=== PATIENT | male | born 1945 | race Caucasian/White ===

== ENCOUNTER 2018-03-13 08:41 | Emergency (ER) | payer MEDICARE ==
[~2018-03-13] VITALS: Ht 182.9 cm; Wt 79.4 kg
[~2018-03-13 08:41] MED LIST: ASPIR 8181 MG PO; LISINOPRIL40 MG PO; LOVASTATIN20 MG PO; RANITIDINE HCL300 M1 PO; TESTOSTERO200 MG/1 M INJ
[2018-03-13 09:30] LABS: BASOPHILS % 0.5 % (0.0-1.0); EOSINOPHILS # (AUTO) 0.1 (0.0-0.4); EOSINOPHILS % 1.8 % (0.0-6.0); HEMATOCRIT 47.2 % (38.2-49.6); HEMOGLOBIN 15.4 g/dL (14.0-18.0); LYMPHOCYTES # (AUTO) 0.7 (1.0-3.2); LYMPHOCYTES % 8.2 % (18.0-39.1); MEAN CORPUSCULAR HEMOGLOBIN 30.5 pg (28-32); MEAN CORPUSCULAR HGB CONC 32.6 g/dL (31-35); MEAN CORPUSCULAR VOLUME 93.5 fL (81-99); MONOCYTES # (AUTO) 0.6 (0.2-0.8); NEUTROPHILS # (AUTO) 6.4 (2.1-6.9); NEUTROPHILS % 81.4 % (38.7-80.0); PLATELET COUNT 259 x10e3/uL (140-360); RED BLOOD COUNT 5.05 x10e6/uL (4.3-5.7); RED CELL DISTRIBUTION WIDTH 13.2 % (11.7-14.4)
[2018-03-13 09:51] LABS: ALANINE AMINOTRANSFERASE 23 IU/L (0-55); ALBUMIN 3.8 g/dL (3.5-5.0); ALBUMIN/GLOBULIN RATIO 1.5 (0.8-2.0); ALKALINE PHOSPHATASE 44 IU/L (40-150); ANION GAP 11.5 mmol/L (8-16); BLOOD UREA NITROGEN 28 mg/dL (7-26); BUN/CREATININE RATIO 25 (6-25); CALCIUM 9.1 mg/dL (8.4-10.2); CARBON DIOXIDE 27 mmol/L (22-29); CHLORIDE 103 mmol/L (98-107); CREATININE, SERUM 1.12 mg/dL (0.72-1.25); EST GLOMERULAR FILTRATION RATE > 60 ML/MIN (60-); GLUCOSE 131 mg/dL (74-118); POTASSIUM 4.5 mmol/L (3.5-5.1); SODIUM 137 mmol/L (136-145)
[2018-03-13 09:53] LABS: INR 1.08; PROTHROMBIN TIME 13.2 seconds (11.9-14.5)
[2018-03-13 09:54] LABS: PARTIAL THROMBOPLASTIN TIME 32.8 seconds (23.8-35.5)
[2018-03-13 10:07] LABS: CREATINE KINASE MB 6.6 ng/mL (0-5.0)
--- NOTE | 2018-03-13 10:48 | Diagnostic Imaging Report ---
EXAMINATION: CHEST 2 VIEWS INDICATION: coughed up blood COMPARISON: 06/25/2015. FINDINGS: TUBES and LINES: None. LUNGS: Lungs are well inflated. Costophrenic gentleman the left lung base laterally. There is no evidence of pneumonia or pulmonary edema. PLEURA: No pleural effusion or pneumothorax. HEART AND MEDIASTINUM: The cardiomediastinal silhouette is unremarkable. BONES AND SOFT TISSUES: No acute osseous lesion. Soft tissues are unremarkable. UPPER ABDOMEN: No free air under the diaphragm. IMPRESSION: No acute thoracic abnormality. Signed by: Dr. Linda Salas M.D. on 03/13/2018 9:43 AM
[2018-03-13] MEDS ORDERED: SODIUM CHLORIDE 0.9% 50ML 50 ML ONE (11:40)
[2018-03-13] MEDS ORDERED: IOPAMIDOL 370 MG/ML 200 ML INFUS..BTL INJ ONE (11:41)
--- NOTE | 2018-03-13 12:01 | Diagnostic Imaging Report ---
EXAM: CT Chest WITH contrast 03/13/2018 10:48 AM INDICATION: Coughing up blood. COMPARISON: None TECHNIQUE: Chest was scanned utilizing a multidetector helical scanner from the lung apex through the level of the adrenal glands without administration of IV contrast. Coronal and sagittal reformations were obtained. Routine protocol was performed. IV CONTRAST: 100 mL of Isovue 370 RADIATION DOSE: Total DLP: 502.97 mGy*cm Estimated effective dose: (DLP x 0.014 x size factor) mSv COMPLICATIONS: None FINDINGS: LINES/ TUBES: None. LUNGS AND AIRWAYS: Punctate calcified granuloma in the right middle lobe mucous plugging in the right lower lobe posteriorly, associated with fracture groundglass densities as seen on 2 series 3. Calcified granuloma in the posterior left lung base on images 61 series 3. Mild bibasilar subsegmental atelectasis. PLEURA: The pleural spaces are clear. HEART AND MEDIASTINUM: The thyroid gland is normal. No mediastinal, hilar or axillary lymphadenopathy. The heart is normal in size.. There is no pericardial effusion. UPPER ABDOMEN: Limited non-contrast views of the upper abdomen show no abnormality within the visualized liver, spleen, pancreas, or kidneys. The adrenal glands are normal. BONES: There are degenerative changes in the thoracic spine. SOFT TISSUES: Unremarkable. IMPRESSION: 1. Mucous plugging and patchy groundglass density in the posterior left lower lobe may represent aspiration, developing pneumonia, or focal pulmonary alveolar hemorrhage. 2. No pulmonary embolism. Signed by: Dr. Linda Salas M.D. on 03/13/2018 11:58 AM
== END 2018-03-13 13:49 | disposition home or self-care (01) ==
LOC: ER 08:41
DX: R04.2 Hemoptysis (principal); I10 Essential (primary) hypertension; K21.9 Gastro-esophageal reflux disease without esophagitis; E78.5 Hyperlipidemia, unspecified
CPT/HCPCS: 36415; 71046; 71260; 80053; 82550; 82553; 83880; 84484; 85025; 85379; 85610; 85730; 99284; Q9967

== ENCOUNTER 2019-03-13 05:20 | Inpatient (IN) | payer MEDICARE ==
--- NOTE | 2019-03-06 13:01 | Diagnostic Imaging Report ---
Chest, 2 views, 03/06/2019. History: Preop. Comparison: 03/13/2018. Findings: The cardiomediastinal silhouette and pulmonary vasculature are within normal limits. The lungs are clear without evidence of consolidation or pleural effusion. A calcified granuloma is again seen at the left lung base. There are no acute osseous or soft tissue abnormalities. Impression: No acute cardiopulmonary abnormality. Signed by: Melvin Valdovinos on 03/06/2019 12:58 PM
[~2019-03-13] VITALS: Ht 182.9 cm; Wt 77.1 kg
[~2019-03-13 05:20] MED LIST changes: +FLOMAX0.4 MG PO; +PANTOPRAZOLE SO40 MG PO
--- OUTSIDE RECORDS SUMMARY | 2019-03-13 05:22 | XMS REPORT ---
Author Author [facility] Address Unknown Phone Unavailable Care Team Providers Care Electromechanical Inspector Name Role Phone LEO RAM Unavailable Unavailable Pepe LUO Unavailable Unavailable Problems This patient has no known problems. Allergies, Adverse Reactions, Alerts This patient has no known allergies or adverse reactions. Medications This patient has no known medications. Results Test Description Test Time Test Comments Text Results Atomic Results Result Comments CHEST 2 VIEWS 2019-03-06 12:55:00 [facility] [address] [place] [address] Patient Name: ANGELA RINALDI MR #: [id number] : 1945 Age/Sex: 74/M Req #: [id number] Adm Physician: Ordered by: LEO RAM MD Report #: [id number] Location: OR Room/Bed: Procedure: [id number] DX/CHEST 2 VIEWS Exam Date: 03/06/19 Exam Time: 1200 REPORT STATUS: Signed Chest, 2 views, 03/06/2019. History: Preop. C omparison: 03/13/2018. Findings: The cardiomediastinal silhouette and pulmonary vasculature are within normal limits. The lungs are clear without evidence of consolidation or pleural effusion. A calcified granuloma is again seen at the left lung base. There are no acute osseous or soft tissue abnormalities. Impression: No acute cardiopulmonary abnormality. Signed by: Mandeep Valdovinos on 03/06/2019 12:58 PM Dictated By: MANDEEP VALDOVINOS MD [id number] Transcribed By: DAVID on 03/06/19 1258 COPY TO: LEO RAM MD CT CHEST W 2018-03-13 11:49:00 [place] [address] Patient Name: ANGELA RINALDI MR #: [id number] : 1945 Age/Sex: 73/M Req #: [id number] Adm Physician: Ordered by: CLARISSE LUO MD Report #: [id number] Location: ER Room/Bed: Procedure: [id number] CT/CT CHEST W Exam Date: 03/13/18 Exam Time: 1124 REPORT STATUS: Signed EXAM: CT Chest WITH contrast 03/13/2018 10:48 AM INDICATION: Coughing up blood. COMPARISON: None TECHNIQUE: Chest was scanned utilizing a multidetector helical scanner from the lung apex through the level of the adrenal glands without administration of IV contrast. Coronal and sagittal reformations were obtained. Routine protocol was performed. IV CONTRAST: 100 mL of Isovue 370 RADIATION DOSE: Total DLP: 502.97 mGy*cm Estimated effective dose: (DLP x 0.014 x size factor) mSv COMPLICATIONS: None FINDINGS: LINES/ TUBES: None. LUNGS AND AIRWAYS: Punctate calcified granuloma in the right middle lobe mucous plugging in the right lower lobe posteriorly, associated with fracture groundglass densities as seen on 2 series 3. Calcified granuloma in the poste rior left lung base on images 61 series 3. Mild bibasilar subsegmental atelectasis. PLEURA: The pleural spaces are clear. HEART AND MEDIASTINUM: The thyroid gland is normal. No mediastinal, hilar or axillary lymphadenopathy. The heart is normal in size.. There is no pericardial effusion. UPPER ABDOMEN: Limited non-contrast views of the upper abdomen show no abnormality within the visualized liver, spleen, pancreas, or kidneys. The adrenal glands are normal. BONES: There are degenerative changes in the thoracic spine. SOFT TISSUES: Unremarkable. IMPRESSION: 1. Mucous plugging and patchy groundglass density in the posterior left lower lobe may represent aspiration, developing pneumonia, or focal pulmonary alveolar hemorrhage. 2. No pulmonary embolism. Signed by: Dr. Linda Keyes M.D. on 03/13/2018 11:58 AM Dictated By: BUCK KEYES MD, MD 115 Transcribed By: DAVID on 03/13/181157 COPY TO: CLARISSE LUO MD CHEST 2 VIEWS 2018-03-13 09:39:00 [place] [address] Patient Name: ANGELA RINALDI MR #: [id number] : 1945 Age/Sex: 73/M Req #: [id number] Adm Physician: Ordered by: CLARISSE LUO MD Report #: [id number] Location: ER Room/Bed: Procedure: [id number] DX/CHEST 2 VIEWS Exam Date: 03/13/18 Exam Time: 923 REPORT STATUS: Signed EXAMINATION: CHEST 2 VIEWS INDICATION: coughed up blood COMPARISON: 06/25/2015. FINDINGS: TUBES and LINES: None. LUNGS: Lungs are well inflated. Costophrenic gentleman the left lung base laterally. There is no evidence of pneumonia or pulmonary edema. PLEURA: No pleural effusion or pneumothorax. HEART AND MEDIASTINUM: The cardiomediastinal silhouette is unremarkable. BONES AND SOFT TISSUES: No acute osseous lesion. Soft tissues are unremarkable. UPPER ABDOMEN: No free air under the diaphragm. IMPRESSION: No acute thoracic abnormality. Signed by: Dr. Linda Keyes M.D. on 03/13/2018 9:43 AM Dictated By: BUCK KEYES MD, MD 2 Transcribed By: DAVID on 03/13/18942 COPY TO: CLARISSE LUO MD
[2019-03-13] MEDS ORDERED: GENTAMICIN 80MG/NS 100 ML 200 ML IV ONE (05:42)
[2019-03-13] MEDS ORDERED: CEFTRIAXONE SOD 1 GM/NS 50 ML 50 ML IV ONE (05:42)
[2019-03-13] MEDS ORDERED: B&O 60MG R/S 60 MG SUPP PR ONE (06:44)
[2019-03-13] MEDS ORDERED: IOPAMIDOL 610MG/1ML 300 MG/ML VIAL IV ONE (06:44)
[2019-03-13] MEDS ORDERED: B&O 60MG R/S 60 MG SUPP PR PRN (09:15)
[2019-03-13] MEDS ORDERED: DIPHENHYDRAMINE HCL 25 MG CAP PO PRN (09:15)
[2019-03-13] MEDS ORDERED: ACETAMINOPHEN/CODEINE 300MG - 30MG TAB PO PRN (09:15)
[2019-03-13] MEDS ORDERED: ONDANSETRON HCL INJ 2MG/ML 2ML 2 MG/ML VIAL IV PRN (09:15)
[2019-03-13] MEDS ORDERED: ACETAMINOPHEN 1000 MG/100 ML 100 ML IV ONE (09:23)
--- NOTE | 2019-03-13 09:36 | NUR ---
Patient admitted to unit from PACU. Patient is post op TURP. patient has a alvarenga with continuous bladder irrigation infusing. Clear urine noted. Patient is AAOx2-3. Some confusion or delayed response noted. Lung nieves clear to auscultation. Bowel sounds present x4. No edema noted. Right hand IV in place. IV fluids infusing. No s/s of distress noted
[2019-03-13 10:47] VITALS: BP 131/59
[2019-03-13 10:52] VITALS: BP 131/59
[2019-03-13 11:17] LABS: BASOPHILS % 0.4 % (0.0-1.0); EOSINOPHILS % 0.2 % (0.0-6.0); HEMATOCRIT 41.8 % (38.2-49.6); HEMOGLOBIN 13.8 g/dL (14.0-18.0); LYMPHOCYTES # (AUTO) 0.5 (1.0-3.2); LYMPHOCYTES % 4.3 % (18.0-39.1); MEAN CORPUSCULAR HEMOGLOBIN 30.1 pg (28-32); MEAN CORPUSCULAR VOLUME 91.3 fL (81-99); MONOCYTES # (AUTO) 0.2 (0.2-0.8); MONOCYTES % 1.6 % (4.4-11.3); NEUTROPHILS # (AUTO) 10.3 (2.1-6.9); NEUTROPHILS % 92.2 % (38.7-80.0); PLATELET COUNT 206 x10e3/uL (140-360); RED BLOOD COUNT 4.58 x10e6/uL (4.3-5.7)
[2019-03-13 11:32] LABS: ANION GAP 9.7 mmol/L (8-16); BLOOD UREA NITROGEN 15 mg/dL (7-26); BUN/CREATININE RATIO 15 (6-25); CALCIUM 8.3 mg/dL (8.4-10.2); CARBON DIOXIDE 25 mmol/L (22-29); CHLORIDE 106 mmol/L (98-107); CREATININE, SERUM 0.97 mg/dL (0.72-1.25); EST GLOMERULAR FILTRATION RATE > 60 ML/MIN (60-); GLUCOSE 178 mg/dL (74-118); POTASSIUM 4.7 mmol/L (3.5-5.1); SODIUM 136 mmol/L (136-145)
[2019-03-13 12:00] VITALS: BP 131/57
[2019-03-13] MEDS: SODIUM CHLORIDE 0.9% 1000ML 1,000 ML IV SCH ×3 (12:14→23:58)
--- NOTE | 2019-03-13 12:15 | NUR ---
IV in right hand noted to be hanging out. Removed IV and will start a new one
--- NOTE | 2019-03-13 12:30 | NUR ---
Call placed to Dr. Pickens regarding patient's delay in response when asked a question. New order for MRI brain.
--- NOTE | 2019-03-13 13:02 | NUR ---
Informed patient of this nurses concern about his delayed response and patient informed he has a pinched nerve in his neck. Spoke with MD and informed him of the issue. Dr hopkins still wishes to have the MRI done
[2019-03-13 13:08] LABS: LYMPHOCYTES % (MANUAL) 7 % (19-48); MONOCYTES % (MANUAL) 3 % (3.4-9.0); NEUTROPHILS % (MANUAL) 90 % (40-74); PLATELET ESTIMATE ADEQUATE; RBC MORPHOLOGY COMMENT NORMAL
--- NOTE | 2019-03-13 13:48 | NUR ---
New IV to the left AC area.
[2019-03-13] MEDS ORDERED: PHENAZOPYRIDINE HCL 100 MG TAB PO SCH (15:00)
--- NOTE | 2019-03-13 15:08 | NUR ---
Patient going to MRI at this time in a wheelchair. Rodriguez clamped from irrigation.
--- NOTE | 2019-03-13 15:53 | NUR ---
Patient returned from MRI at this time.
[2019-03-13 16:00] VITALS: BP 140/65
[2019-03-13] MEDS ORDERED: PROPOFOL IV EMULSION 10 MG/ML 20 ML VIAL ONE (16:37)
[2019-03-13] MEDS ORDERED: DEXAMETHASONE SOD PHOS INJ 4 MG/ML VIAL ONE (16:37)
[2019-03-13] MEDS ORDERED: SEVOFLURANE INHAL SOLN 250 ML PEN BTL ONE (16:37)
[2019-03-13] MEDS ORDERED: ONDANSETRON HCL INJ 2MG/ML 2ML 2 MG/ML VIAL ONE (16:37)
[2019-03-13] MEDS ORDERED: EPHEDRINE SULFATE INJ 50 MG/10 ML SYR ONE (16:37)
[2019-03-13] MEDS ORDERED: GLYCOPYRROLATE INJ 1MG/ 5 ML SYR ONE (16:37)
[2019-03-13] MEDS ORDERED: LIDOCAINE HCL 2% LOCAL INJ 5 ML SDV VIAL INJ ONE (16:37)
[2019-03-13] MEDS ORDERED: FENTANYL CITRATE/PF 100MCG/2 ML INJ ONE (16:40)
[2019-03-13] MEDS: DOCUSATE SODIUM 100 MG CAP PO SCH (17:20)
[2019-03-13] MEDS: PHENAZOPYRIDINE HCL 100 MG TAB PO SCH (17:20)
--- NOTE | 2019-03-13 18:02 | NUR ---
Rcvd call from radiologist at [facility] and was informed that this patient had a right fernanda acute infarct. Addendum: 03/13/19 at 1817 by Kirsten Millard RN Radiologist recommended a CTA of head and neck and neuro consult.
--- NOTE | 2019-03-13 18:05 | NUR ---
Call placed to Dr. Pickens to inform of the findings from the MRI. New order for consult russel. New order noted and informed Dr. Causey of the issue at hand. She informed she would be here in a little bit to see the patient.
--- NOTE | 2019-03-13 18:08 | Diagnostic Imaging Report ---
Images made available for interpretation on 03/13/2019 at 5:55 PM. EXAMINATION: MRI of the brain without contrast. HISTORY: Status post recent surgery, delayed response, not answering questions, evaluate for acute stroke. COMPARISON: None available TECHNIQUE: Sagittal T2; axial DWI, T2, FLAIR, T1-IR, T2 gradient echo; coronal FLAIR. IMAGE QUALITY: Adequate. FINDINGS: Parenchyma: 1. Focal area of matching T2 FLAIR and DWI hyperintensity in the right para median fernanda, consistent with acute ischemic infarct. 2. Few scattered white matter T2 and FLAIR hyperintense foci, most likely nonspecific chronic microvascular ischemic changes. 3. Tiny chronic lacunar infarct in the right thalamocapsular region. 4. No mass, hemorrhage, acute or chronic infarcts. Skull: Unremarkable. Vessels: Expected flow voids present in the major arteries and dural sinuses. Extra-axial spaces: No abnormal signal intensity or mass effect. Brain volume: Within normal limits for age. Ventricles: No hydrocephalus or displacement. Foramen magnum: Unremarkable. Sella: Unremarkable. Paranasal / mastoid sinuses: No significant inflammatory disease. IMPRESSION: 1. 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 An emergent neurology consult and CT angiogram of the head and neck with contrast is recommended. 2. Mild chronic microvascular ischemic changes. The findings were discussed with nurse practitioner taking care of the patient, Cecilia Millard on 03/13/2019 at 6 PM, who expresses understanding of the findings and recommendations and will contact the attending physician. Signed by: Dr. Ayleen Cantu M.D. on 03/13/2019 6:05 PM
--- NOTE | 2019-03-13 18:22 | NUR ---
Call placed to Dr. Concepcion and informed him of the MRI results as well.
--- NOTE | 2019-03-13 19:00 | NUR ---
Walking rounds done and report received. Dr. Causey at the bedside assessing patient. CBI infusing. Call ortega within reach, bed in lowest position, and locked.
[2019-03-13] MEDS ORDERED: DEXTROSE 50% SYRINGE 50 ML IV PRN (19:15)
[2019-03-13 19:40] LABS: CHOL/HDL RATIO 2.8 (3.9-4.7)
[2019-03-13 20:00] VITALS: BP_SYST 140; BP_SYST 154; BP_DIAS 65; BP_DIAS 67
[2019-03-13] MEDS ORDERED: NON-FORMULARY MEDICATION (Lovastatin 20 MG) PO SCH (21:00)
[2019-03-13] MEDS: INSULIN REGULAR, HUMAN 100 UNIT/1 ML 3ML VIAL SQ SCH (21:00)
[2019-03-13] MEDS ORDERED: SIMVASTATIN 20 MG TAB PO SCH (21:00)
[2019-03-13] MEDS ORDERED: IOPAMIDOL 370 MG/ML 200 ML INFUS..BTL INJ ONE (22:13)
[2019-03-13] MEDS ORDERED: SODIUM CHLORIDE 0.9% 100 ML 100 ML ONE (22:13)
[2019-03-14] VITALS (8 sets, daily range): BP systolic 146–177; BP diastolic 63–80
--- NOTE | 2019-03-14 00:35 | Diagnostic Imaging Report ---
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 Comparison studies:None Technique: Axial images were obtained from the thoracic inlet. Multiplanar, MIP and volume rendered 3-D images of the neck and [place] of [place] were reformatted from the axial source data. Dose modulation, iterative reconstruction, and/or weight based adjustment of the mA/kV was utilized to reduce the radiation dose to as low as reasonably achievable. Intravenous contrast: 100 cc of Isovue-370. Findings: Neck CTA: If present, stenosis is calculated utilizing the NASCET method which calculates the degree of stenosis with reference to the normal lumen of the carotid artery distal to the stenosis. Aortic arch and great vessels: Mild scattered calcified plaque throughout the aortic arch. Calcified and soft plaque in the proximal left subclavian result in approximately 20% stenosis. Common carotid arteries: Patent, no abnormalities. Carotid bulbs: Moderate calcified plaque bilaterally result in no (0%) stenosis by NASCET criteria on the right and approximately 20% stenosis on the left. Mild stenosis at the right ECA origin. Nonstenotic calcified plaque at the left ECA origin. Internal carotid arteries: Patent, no abnormalities. Vertebral arteries: Patent bilaterally. Calcified and soft plaque at the right vertebral artery origin results in moderate stenosis. Mild stenosis in the left V1 segment, middle left V2 segment Intracranial CTA: No aneurysm or arterial vascular malformation identified. Anterior circulation: Internal carotid arteries: Patent bilaterally with moderate calcified plaque in the bilateral cavernous and paraophthalmic segments with mild stenosis on the right. No significant stenosis on the left. Middle cerebral arteries: Patent, no proximal branch occlusion or stenosis. Anterior cerebral arteries: The right A1 segment is hypoplastic and not well visualized distally. The left A1 and A2 MANJU segments are patent. Posterior circulation: Vertebral arteries: Calcified plaque on the right results in mild stenosis in the proximal V4 segment. Calcified and soft plaque on the left result in moderate stenosis in the proximal V4 segment. Basilar artery: Patent, no stenosis. Posterior cerebral arteries: Patent on the right with mild stenosis in the right P2 segment. The right P1 segment is hypoplastic and the right NEWSPAPER PRESS OPERATOR APPRENTICE is predominantly supplied by a right posterior commuting indicating artery ( NEWSPAPER PRESS OPERATOR APPRENTICE origin). The left P1 and proximal P2 segments are patent. The the left NEWSPAPER PRESS OPERATOR APPRENTICE is occluded or near totally occluded in the mid P2 segment. Anatomical variants: Acom: Patent . Pcoms: Right NEWSPAPER PRESS OPERATOR APPRENTICE origin. Not visualized on the left. Vertebral arteries: Right is slightly dominant. Cervical spine: Degenerative changes in the cervical spine with multilevel disc degeneration (greatest/moderate at C5-C6 and at C6-C7, minimal retrolisthesis of C3 on C4 and mild multilevel foraminal stenosis due to uncovertebral and facet arthrosis. Incidental findings: Small bilateral maxillary sinus retention cyst within mild bilateral middle ethmoid mucosal thickening. IMPRESSION: Neck CTA 1. Atherosclerotic plaques as described. 2. Approximately 20% stenosis at the left carotid bulb. 3. No (0%) stenosis at the right carotid bulb by NASCET criteria. 4. Approximately 70% stenosis at the right vertebral artery origin. 5. Mild multifocal stenosis in the left vertebral artery. Intracranial CTA: 1. Atherosclerotic plaques as described. 2. Left NEWSPAPER PRESS OPERATOR APPRENTICE is occluded or near totally occluded in the P2 segment. 3. Moderate stenosis in the proximal left vertebral artery. 4. Mild to moderate stenosis in the proximal right vertebral artery. 5. Moderate atherosclerosis in the carotid siphons with mild stenosis on the right. Signed by: Dr. Arash Sarmiento M.D. on 03/14/2019 12:32 AM
--- NOTE | 2019-03-14 00:36 | Diagnostic Imaging Report ---
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 Comparison studies:None Technique: Axial images were obtained from the thoracic inlet. Multiplanar, MIP and volume rendered 3-D images of the neck and [place] of Haddad were reformatted from the axial source data. Dose modulation, iterative reconstruction, and/or weight based adjustment of the mA/kV was utilized to reduce the radiation dose to as low as reasonably achievable. Intravenous contrast: 100 cc of Isovue-370. Findings: Neck CTA: If present, stenosis is calculated utilizing the NASCET method which calculates the degree of stenosis with reference to the normal lumen of the carotid artery distal to the stenosis. Aortic arch and great vessels: Mild scattered calcified plaque throughout the aortic arch. Calcified and soft plaque in the proximal left subclavian result in approximately 20% stenosis. Common carotid arteries: Patent, no abnormalities. Carotid bulbs: Moderate calcified plaque bilaterally result in no (0%) stenosis by NASCET criteria on the right and approximately 20% stenosis on the left. Mild stenosis at the right ECA origin. Nonstenotic calcified plaque at the left ECA origin. Internal carotid arteries: Patent, no abnormalities. Vertebral arteries: Patent bilaterally. Calcified and soft plaque at the right vertebral artery origin results in moderate stenosis. Mild stenosis in the left V1 segment, middle left V2 segment Intracranial CTA: No aneurysm or arterial vascular malformation identified. Anterior circulation: Internal carotid arteries: Patent bilaterally with moderate calcified plaque in the bilateral cavernous and paraophthalmic segments with mild stenosis on the right. No significant stenosis on the left. Middle cerebral arteries: Patent, no proximal branch occlusion or stenosis. Anterior cerebral arteries: The right A1 segment is hypoplastic and not well visualized distally. The left A1 and A2 MANJU segments are patent. Posterior circulation: Vertebral arteries: Calcified plaque on the right results in mild stenosis in the proximal V4 segment. Calcified and soft plaque on the left result in moderate stenosis in the proximal V4 segment. Basilar artery: Patent, no stenosis. Posterior cerebral arteries: Patent on the right with mild stenosis in the right P2 segment. The right P1 segment is hypoplastic and the right APPLICATION SECURITY ARCHITECT is predominantly supplied by a right posterior commuting indicating artery ( APPLICATION SECURITY ARCHITECT origin). The left P1 and proximal P2 segments are patent. The the left APPLICATION SECURITY ARCHITECT is occluded or near totally occluded in the mid P2 segment. Anatomical variants: Acom: Patent . Pcoms: Right APPLICATION SECURITY ARCHITECT origin. Not visualized on the left. Vertebral arteries: Right is slightly dominant. Cervical spine: Degenerative changes in the cervical spine with multilevel disc degeneration (greatest/moderate at C5-C6 and at C6-C7, minimal retrolisthesis of C3 on C4 and mild multilevel foraminal stenosis due to uncovertebral and facet arthrosis. Incidental findings: Small bilateral maxillary sinus retention cyst within mild bilateral middle ethmoid mucosal thickening. IMPRESSION: Neck CTA 1. Atherosclerotic plaques as described. 2. Approximately 20% stenosis at the left carotid bulb. 3. No (0%) stenosis at the right carotid bulb by NASCET criteria. 4. Approximately 70% stenosis at the right vertebral artery origin. 5. Mild multifocal stenosis in the left vertebral artery. Intracranial CTA: 1. Atherosclerotic plaques as described. 2. Left APPLICATION SECURITY ARCHITECT is occluded or near totally occluded in the P2 segment. 3. Moderate stenosis in the proximal left vertebral artery. 4. Mild to moderate stenosis in the proximal right vertebral artery. 5. Moderate atherosclerosis in the carotid siphons with mild stenosis on the right. Signed by: Dr. Arash Sarmiento M.D. on 03/14/2019 12:32 AM
--- NOTE | 2019-03-14 04:37 | Operative Report ---
DATE OF PROCEDURE: 03/13/2019 SURGEON: Bj Concepcion MD PREOPERATIVE DIAGNOSES: 1. Obstructive benign prostatic hyperplasia. 2. Incomplete bladder emptying. POSTOPERATIVE DIAGNOSES: 1. Obstructive benign prostatic hyperplasia. 2. Incomplete bladder emptying. 3. 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 OPERATION PERFORMED: 1. Cystourethroscopy with calibration and dilation of urethral strictures (separate procedure performed for the diagnosis of the stricture). 2. Cystourethroscopy with bilateral ureteral catheterization and retrograde ureteropyelography (separate procedure performed for the incomplete bladder emptying). 3. Interpretation of retrograde ureteropyelography. 4. Supervision of fluoroscopy, no radiologist present. 5. Cystourethroscopy with transurethral resection of the prostate (separate staged procedure for the obstructive BPH). ANESTHESIA: General. COMPLICATIONS: None. CLINICAL SUMMARY: Beto Ty is a 74-year-old man, who desires an inflatable penile prosthesis. The patient has obstructive symptomatology with BPH. He is brought to the operating room to resolve his obstructive BPH in preparation of pursuing an inflatable penile prosthesis procedure once he is fully healed from this surgery. He is aware of the risks of bleeding, infection, injury to adjacent structures, incontinence, impotence, need for additional procedures, and the usual attendant risks of surgery and anesthesia, which he was to discuss with the anesthesiologist preoperatively. He understood all these risks and elected to proceed. OPERATIVE PROCEDURE IN DETAIL: Informed consent was verified. Beto Ty was properly identified, taken to the operating room, placed on the cystoscopy table in supine position. Anesthesia was uneventfully begun. The patient was then carefully gently repositioned in dorsal lithotomy position with all pressure points well padded. His genitalia were prepared and draped in usual sterile fashion. The 22.5-Kuwaiti cystourethroscope sheath with the visual obturator in place was atraumatically inserted into the patient's urethral meatus, but it could not be advanced to pass the fossa navicularis. We then utilized female sounds to calibrate the fossa navicularis region at approximately 16-Kuwaiti in size and progressively dilated to 28-Kuwaiti in size. The 28-Kuwaiti sound was left in place for a few moments to dilate the fossa navicularis urethral stricture. We then passed the cystoscope sheath under direct vision and guided it down the urethra, which was relatively unremarkable until we reached the bulbar region, where there another stricture was encountered. We dilated across the stricture utilizing a visual obturator and cystoscope sheath and then we passed a normal sphincteric region, went into the prostate bed, which exhibited trilobar prostatic hypertrophy with kissing lateral lobes in a small median lobe. We entered the patient's bladder and drained it. Panendoscopy of the urinary bladder revealed some glomerulations noted throughout the bladder just from the act of cystoscopy without specific hydrodistention. There were grade 1 trabeculations noted, but no tumors, no stones, no diverticula. No suspicious mucosal lesions were identified. An 8-Kuwaiti catheter was used to cannulate each ureter and retrograde ureteral pyelograms were performed. Interpretation of retrograde ureteropyelography, contrast was instilled in retrograde fashion bilaterally. There were no tumors, no stones, no diverticula. Unobstructed drainage was observed bilaterally fluoroscopically. There was bilateral fullness noted of both upper collecting systems all the way down to the patient's bladder. Nevertheless, unobstructed drainage was observed bilaterally fluoroscopically. We then utilized the Alberto male sounds to dilate the bulbar urethra to 28-Kuwaiti in size, that the 28-Ku[place]i sound was left in place for a few moments to dilate the bulbar region. The continuous irrigation resectoscope sheath with obturator in place into the patient's bladder and the bladder was drained. The plasma button electrode was then utilized to perform transurethral resection of the prostate. We first vaporize the median lobe down to its base, taking care to avoid injuring the ureteral orifices. We then worked on both lateral lobes from the bladder neck tube, but never passed the verumontanum and down the surgical capsule throughout and during the apical vaporization at the junction between transition zone and peripheral zone, numerous small intraprostatic stones were released and then evacuated. This finding is consistent with chronic prostatitis. Pinpoint electrocautery was utilized to achieve hemostasis. The resectoscope was withdrawn. Continuous irrigation Rodriguez was then placed utilizing a catheter guide to ensure proper placement. A 30 mL balloon was inflated with 50 mL of sterile water. The patient was placed on continuous irrigation with very clear efflux emerging. The catheter was irrigated to and fro to ensure it worked properly. A belladonna and opium suppository were placed revealing a large prostate at least 40 g in size that is smooth, non-fluctuant without any nodules. The patient was then uneventfully reversed from anesthesia and taken to recovery room in stable condition. There were no complications to the procedure. The patient tolerated the procedure well. Estimated blood loss was minimal. We will admit the patient for a continuous irrigation, intravenous antibiotics, and observation due to his medical problems including diabetes and ongoing urological followup will be carried out. Bj MD ANNETTE Concepcion/MARSHA /[id number]
--- NOTE | 2019-03-14 04:37 | Consultation ---
DATE OF CONSULTATION: 03/13/2019 Neurology Consult Note HISTORY OF PRESENT ILLNESS: Mr. Ty was admitted to [facility] on March 13, 2019, for transurethral resection of prostate. Postoperatively, the patient was noted by his nurse to have slowed responses. A stat MRI of the brain without contrast was ordered and revealed an acute ischemic stroke in the right paramedian fernanda. An urgent neurology consultation was placed for recommendations for further evaluation and treatment of the patient. Mr. Ty endorses the onset of multiple neurological symptoms on either Sunday, March 10, 2019 or Monday, March 11, 2019. 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 Mr. Ty reports being struck by a golf cart resulting in abrasions over his arms and torso. Furthermore, when he was struck by the golf cart, the patient felt something "pop" in his neck. For the remainder of the day, the patient experienced pain and limited range of motion of the cervical spine. However, the patient does not report neurological symptoms at that time. The following day, the patient noted weakness affecting the left arm and leg, poor balance, and gait impairment. Furthermore, the patient's as well as multiple other person's noted slowness of the patient's speech. Mr. Ty does not report a visual field cut or other disturbance, dysarthria, aphasia, facial weakness, hemihypesthesia, dizziness, or confusion associated with the above symptoms. Mr. Ty has not experienced similar symptoms previously. He does not endorse a severe headache associated with the above described symptoms. The patient routinely takes aspirin 81 mg by mouth daily. However, due to his recent surgery, he stopped taking aspirin on March 05, 2019. The patient endorses his compliance with all other medication until the morning of surgery, 03/13/2019. REVIEW OF SYSTEMS: Slowed responses, weakness of the left arm and leg, impairment of balance and gait, and low back pain (chronic). PAST MEDICAL HISTORY: Hypertension, hyperlipidemia, diabetes mellitus type 2 (controlled with diet and exercise), osteoarthritis, gastroesophageal reflux disease, benign prostatic hypertrophy, chronic low back pain, and erectile dysfunction. PAST SURGICAL HISTORY: TURP, colonoscopy, right ankle ORIF, right ear osteoma excision, LASIK, and left knee arthroscopy. PAST HOSPITALIZATIONS: Surgeries/procedures as listed, anemia requiring transfusion of packed red blood cells. FAMILY MEDICAL HISTORY: The patient's father had coronary artery disease, stroke, and prostate cancer. There is no other significant family medical history reported. SOCIAL HISTORY: Mr. Ty is . He is retired. The patient is a former cigar smoker. He has not smoked cigar in over 20 years. The patient does not report alcohol or recreational drug use. HOME MEDICATIONS: Aspirin 81 mg by mouth daily, lisinopril 40 mg by mouth daily, lovastatin 20 mg by mouth at bedtime daily, pantoprazole 40 mg by mouth daily, Flomax 0.4 mg by mouth at bedtime daily, testosterone 2 mL injected subcutaneously every two weeks. HOSPITAL MEDICATIONS: Tylenol No. 3, belladonna alkaloids/opium, ceftriaxone, diphenhydramine, Colace, Zofran, and Pyridium. ALLERGIES: NO KNOWN DRUG ALLERGIES. NO KNOWN FOOD ALLERGIES. NO KNOWN ALLERGIES TO LATEX. THE PATIENT DOES REPORT AN ALLERGY TO SKIN CLEAN. NO KNOWN ALLERGIES TO IODINE OR OTHER CONTRAST MATERIALS. PHYSICAL EXAMINATION: VITAL SIGNS: Height 72 inches, weight 175 pounds, BMI 23.7 kg/m2, blood pressure 140/65 mmHg, pulse 54 beats per minute, respiratory rate 19 breaths per minute, and oxygen saturation 97% on room air. General: The patient is awake and alert, does not appear distressed. Normal body habitus. HEENT: Normocephalic, atraumatic. Pupils are surgical. Moist mucous membranes. NECK: Supple. No appreciable thyromegaly. No appreciable carotid bruits. CARDIOVASCULAR: S1, S2, bradycardic, regular rhythm. A moderate grade systolic ejection murmur is auscultated. No rubs or gallops. RESPIRATORY: Clear to auscultation bilaterally. No wheezes, rhonchi, or rales. EXTREMITIES: The skin is warm and dry. No clubbing, cyanosis, or edema. The posterior tibial and dorsalis pedis pulses are 2+ and symmetric. SKIN: No rashes or lesions. NEUROLOGIC: Memory/Attention: The patient is awake and alert, oriented to person, place, time, and situation. Cranial Nerves: Cranial nerve I - not tested. Cranial nerve II, III, IV, and - pupils are surgical. Extraocular movements intact. No nystagmus. Cranial nerve V - sensation to light touch and pinprick is intact in the bilateral V1 through V3 distributions. Strength in the temporalis and masseter muscles are within normal limits. Cranial nerve VII - the face is asymmetric on the left as are all facial movements. Mild central left facial weakness is appreciated. Cranial nerve VIII - hearing is diminished to finger rub bilaterally. Cranial nerve IX, X - the soft palate elevates equally and symmetrically. Cranial nerve XI - normal strength of the bilateral sternocleidomastoid and trapezius muscles. Cranial nerve XII - the tongue protrudes midline and moves symmetrically from [id number]-lnkh. Strength: Bulk is normal. Strength is 5/5 in the bilateral deltoids, biceps, triceps, wrist flexors and extensors, finger flexors and extensors, intrinsic hand muscles, hip flexors, knee flexors and extensors, ankle dorsiflexion and plantar flexion, and intrinsic foot muscles. Tone is normal. DTRs: Deep tendon reflexes are 2+ and symmetric at the triceps, biceps, brachioradialis, and patellas. Deep tendon reflexes are trace and symmetric at the Achilles. Plantar responses are flexor bilaterally. Sensation: Sensation is intact to light touch and pinprick in both arms and both legs. Cerebellar: Vnlctf-ptuk-bhxjpl and heel-riojas movements are intact on the right without dysmetria or other impairment. Qmnepu-dlcw-gqocwn and heel-riojas movements are impaired on the left, not within the bounds of paresis. Gait: Deferred. Speech: Spontaneous speech is normal without appreciable dysarthria or aphasia. Repetition is intact. Involuntary movements: None. Pronator drift: Positive in the left arm and left leg. LABORATORY DATA: A basic metabolic panel was significant for an elevated serum glucose of 178 and mild hypocalcemia with a calcium of 8.3. A magnesium was 1.9. The CBC with differential and platelets reveals a mildly elevated white blood cell count of 11.19 with a left shift with 92.2% neutrophils, 4.3% lymphocytes, 1.6% monocytes, 0.2% eosinophils, and 0.4% basophils. DIAGNOSTIC STUDIES: Electrocardiogram 03/06/2019: Sinus bradycardia at 43 beats per minute with sinus arrhythmia. Chest x-ray on 03/06/2019: No acute cardiopulmonary abnormality. MRI of the brain without contrast 03/13/2019: On my review, there is acute ischemia in the right paramedian fernanda. Chronic lacunar infarcts are seen in the right thalamic capsular region. Cerebral volumes are appropriate for age. There are scattered nonspecific T2/FLAIR hyperintense foci throughout the supratentorial white matter compatible with mild chronic small vessel ischemic disease. ASSESSMENT AND PLAN: Mr. Ty is a 74-year-old right-hand dominant man with multiple vascular risk factors, admitted to [facility] on March 13, 2019, for a transurethral resection of the prostate, who has been found to have an acute ischemic stroke in the right paramedian fernanda. The patient's neurological examination is significant for mild left hemiparesis affecting the face, arm, and leg, as well as incoordination of the left arm and left leg. The patient's laboratory data and other diagnostic studies have been reviewed and are documented above. RECOMMENDATIONS: As follows: 1. A lipid panel and hemoglobin A1c will be ordered. 2. A CTA of the brain and neck with contrast will be ordered. 3. An echocardiogram will be ordered. 4. Unfortunately, due to the patient's recent surgery, treatment with anti- platelet or anticoagulant medication cannot be resumed at present. However, treatment with aspirin 81 mg by mouth daily should be resumed as soon as possible for stroke prophylaxis. 5. Allow permissive hypertension for 36-48 hours status post stroke. The patient's blood pressure may be gradually normalized beginning on Wednesday, March 15, 2019. Prior to discharge, the patient's goal blood pressure is less than 140/90 mmHg. 6. The patient's goal total cholesterol is less than 200 with an LDL of less than 70. Follow up the results of the lipid panel. In the interim, treatment with the patient's home medication of pravastatin 20 mg by mouth at bedtime daily, or its equivalent, will be continued. 7. The patient's goal hemoglobin A1c is less than 7.0. Follow up the results of the hemoglobin A1c. Treatment with a low-dose insulin sliding scale will be prescribed. Tight glycemic control is recommended while the patient is hospitalized. 8. Speech and Physical Therapy consultations will be ordered. 9. Gastrointestinal prophylaxis with the patient's home medication of Protonix 40 mg by mouth daily. Deep venous thrombosis prophylaxis with KIMBERLY hose and SCDs. 10. Defer treatment of the remaining medical comorbidities to the primary and other services following patient. Thank you for this consultation. I will continue to follow the patient while he remains in the hospital. TIME SPENT: 70 minutes. Izabella Causey MD CP/MARSHA /[id number]
--- NOTE | 2019-03-14 04:50 | NUR ---
Dr. Pickens making rounds and reviewed CTA results. No new orders at this time.
[2019-03-14] MEDS: CEFTRIAXONE SOD 1 GM/NS 50 ML 50 ML IV SCH (05:23)
[2019-03-14 05:24] LABS: BASOPHILS % 0.2 % (0.0-1.0); EOSINOPHILS % 0.3 % (0.0-6.0); HEMATOCRIT 40.5 % (38.2-49.6); HEMOGLOBIN 13.4 g/dL (14.0-18.0); LYMPHOCYTES # (AUTO) 1.2 (1.0-3.2); LYMPHOCYTES % 10.5 % (18.0-39.1); MEAN CORPUSCULAR HEMOGLOBIN 30.1 pg (28-32); MEAN CORPUSCULAR HGB CONC 33.1 g/dL (31-35); MONOCYTES # (AUTO) 0.8 (0.2-0.8); MONOCYTES % 6.6 % (4.4-11.3); NEUTROPHILS # (AUTO) 9.5 (2.1-6.9); NEUTROPHILS % 81.9 % (38.7-80.0); PLATELET COUNT 211 x10e3/uL (140-360); RED BLOOD COUNT 4.45 x10e6/uL (4.3-5.7); RED CELL DISTRIBUTION WIDTH 13.2 % (11.7-14.4)
[2019-03-14 05:39] LABS: ANION GAP 11.1 mmol/L (8-16); BLOOD UREA NITROGEN 13 mg/dL (7-26); BUN/CREATININE RATIO 14 (6-25); CALCIUM 8.4 mg/dL (8.4-10.2); CARBON DIOXIDE 25 mmol/L (22-29); CHLORIDE 104 mmol/L (98-107); CREATININE, SERUM 0.94 mg/dL (0.72-1.25); EST GLOMERULAR FILTRATION RATE > 60 ML/MIN (60-); GLUCOSE 118 mg/dL (74-118); POTASSIUM 4.1 mmol/L (3.5-5.1); SODIUM 136 mmol/L (136-145)
--- NOTE | 2019-03-14 06:43 | History and Physical ---
REASON FOR ADMISSION: 1. Status post TURP. 2. CVA on the right side. HISTORY OF PRESENT ILLNESS: The patient is a 74-year-old gentleman, who actually had a scheduled TURP for 03/13/2019, but three days prior, the patient started to feel a little weird and off, which he thought was due to more pinched nerve in his neck area and postoperatively the surgery went well. The nurses noted that he seemed to be dysarthric and difficulty doing some tasks with his left side, so the MRI was done, which showed an acute right-sided CVA with no hemorrhagic changes. He then had a CTA done that showed carotids to be clear. He did have some posterior circulation changes mostly on the right side of the vertebral arteries. PAST MEDICAL HISTORY: Significant for diabetes, hypertension, hyperlipidemia, reflux disease. MEDICATIONS: See MAR. ALLERGIES: SKIN CLEAN. SOCIAL HISTORY: Nonsmoker, nondrinker. Lives at home with his . Exercises daily. FAMILY HISTORY: Hypertension. PHYSICAL EXAMINATION: VITAL SIGNS: Temperature is 98.4, pulse 56, blood pressure 177/80, sats 98% on room air. GENERAL: He is no apparent distress, lying in bed. NECK: Supple. No bruits. LUNGS: Clear to auscultation bilaterally. CARDIOVASCULAR: Regular rate and rhythm. ABDOMEN: Good bowel sounds. Soft and nontender. EXTREMITIES: No clubbing or cyanosis. He has a Rodriguez in place with pinkish tinged urine, but no clots. NEUROLOGICAL: He is able to move all extremities x4. He has good room service food server on the left side. He states he already was feeling much better. ASSESSMENT AND PLAN: 1. Cerebrovascular accident on the right. Continue with current care per Neurology. Continue with his aspirin. 2. Diabetes, diet controlled. 3. Hyperlipidemia. Continue with his simvastatin. 4. Reflux disease. Continue with his proton pump inhibitor. 5. Status post transurethral resection of the prostate. Continue with postoperative care per Dr. Concepcion. MD MARIELENA Ortiz/MARSHA /[id number]
--- NOTE | 2019-03-14 07:20 | NUR ---
Patient lying in bed with eyes closed. Respiration even and unlabored without SOB. Call light within reach.
[2019-03-14] MEDS: INSULIN REGULAR, HUMAN 100 UNIT/1 ML 3ML VIAL SQ SCH ×4 (07:30→21:00)
[2019-03-14] MEDS: PHENAZOPYRIDINE HCL 100 MG TAB PO SCH ×3 (08:27→16:54)
[2019-03-14] MEDS: DOCUSATE SODIUM 100 MG CAP PO SCH ×2 (08:27→16:54)
[2019-03-14] MEDS: PANTOPRAZOLE SOD 40 MG TABEC PO SCH (08:27)
--- NOTE | 2019-03-14 08:32 | NUR ---
Spoke with Dr. Causey regarding starting patient on anticoagulant. New order for aspirin 81mg
[2019-03-14] MEDS: ASPIRIN 81 MG CHEW TAB PO SCH (09:13)
--- NOTE | 2019-03-14 10:59 | NUR ---
Nutrition Screen Note RD Recommendation for Physician: - Continue diet as ordered Plan of Care: RD following, monitoring for tolerance and adequacy Nutrition reason for involvement: Nutrition Risk Trigger - MST Primary Diagnose(s): CVA w mild L hemiparesis, prostatism PMH: DM, HTN, HLD, reflux Ht: 72in Wt: 175lb BMI: 23.7kg/m2 IBW: 178lb +/- 10% RD Assessment: (03/14) Chart reviewed. Labs and meds reviewed. 74yo M, who was admitted for prostatism. Visited pt in the room. Pt reported good appetite. Pt denied any nausea or vomiting. LBM - 03/14. Pt has some L sided weakness but refused any diet modification. Pt denied any chewing or swallowing difficulty. Weight has been stable. No other nutrition related question at this time. Current Diet: ADA 1800 Malnutrition Evaluation (03/14/2019) The patient does not meet criteria for a specified degree of malnutrition at this time. Will re-evaluate at follow-up as appropriate. Diet Education Needs Assessment: Diet education not indicated. - Diet controlled DM with HbA1c at 6.4%. Nutrition Care Level: low Signed: Jessica Monge, MS, RD, LD
[2019-03-14] MEDS: SODIUM CHLORIDE 0.9% 1000ML 1,000 ML IV SCH ×2 (12:25→22:32)
--- NOTE | 2019-03-14 15:10 | NUR ---
Visit made by the Spiritual Care Department Pastoral Visitor, Lizette Suárez. PV provided pastoral presence, hospitality, and supportive listening. Pastoral Visitor informed pt/family of the scope of [employer] and availability. SAILAJA LAMB Engine Lathe Set Up Operator Tool Spiritual Care Department O: [phone] Pager: [phone] ([phone] number calling from)
--- NOTE | 2019-03-14 18:57 | NUR ---
Walking rounds and report received. POC discussed. Patient instructed to call for assistance as needed and verbalized understanding. No complaints voiced at this time. CBI infusing, urine is an orange eva color. Bed in lowest position, locked, bed alarm on and call ortega within reach.
[2019-03-14] MEDS: SIMVASTATIN 20 MG TAB PO SCH (21:05)
[2019-03-15] VITALS (7 sets, daily range): BP systolic 136–173; BP diastolic 62–74
--- NOTE | 2019-03-15 02:15 | NUR ---
Patient is resting in bed without any complaints voiced. CBI infusing without any bleeding or clots noted. Call ortega within reach.
[2019-03-15] MEDS: CEFTRIAXONE SOD 1 GM/NS 50 ML 50 ML IV SCH (05:58)
[2019-03-15 06:11] LABS: BASOPHILS % 0.4 % (0.0-1.0); EOSINOPHILS # (AUTO) 0.1 (0.0-0.4); EOSINOPHILS % 0.6 % (0.0-6.0); HEMATOCRIT 41.3 % (38.2-49.6); HEMOGLOBIN 13.4 g/dL (14.0-18.0); LYMPHOCYTES % 10.2 % (18.0-39.1); MEAN CORPUSCULAR HEMOGLOBIN 29.6 pg (28-32); MEAN CORPUSCULAR HGB CONC 32.4 g/dL (31-35); MEAN CORPUSCULAR VOLUME 91.4 fL (81-99); MONOCYTES # (AUTO) 0.7 (0.2-0.8); NEUTROPHILS # (AUTO) 8.1 (2.1-6.9); NEUTROPHILS % 81.1 % (38.7-80.0); PLATELET COUNT 208 x10e3/uL (140-360); RED BLOOD COUNT 4.52 x10e6/uL (4.3-5.7); RED CELL DISTRIBUTION WIDTH 13.1 % (11.7-14.4)
[2019-03-15 06:22] LABS: ANION GAP 10.2 mmol/L (8-16); BLOOD UREA NITROGEN 15 mg/dL (7-26); BUN/CREATININE RATIO 16 (6-25); CALCIUM 8.5 mg/dL (8.4-10.2); CARBON DIOXIDE 24 mmol/L (22-29); CHLORIDE 105 mmol/L (98-107); CREATININE, SERUM 0.92 mg/dL (0.72-1.25); EST GLOMERULAR FILTRATION RATE > 60 ML/MIN (60-); GLUCOSE 156 mg/dL (74-118); POTASSIUM 4.2 mmol/L (3.5-5.1); SODIUM 135 mmol/L (136-145)
--- NOTE | 2019-03-15 07:24 | NUR ---
RECEIVED PATIENT RESTING IN BED, NO SIGNS OF DISTRESS. AT BEDSIDE. BED LOW, WHEELS LOCKED, SIDE RAILS X2. CALL LIGHT IN REACH WILL CONTINUE TO MONITOR PATIENT.
[2019-03-15] MEDS: INSULIN REGULAR, HUMAN 100 UNIT/1 ML 3ML VIAL SQ SCH ×4 (07:30→21:00)
[2019-03-15] MEDS: ASPIRIN 81 MG CHEW TAB PO SCH (07:57)
[2019-03-15] MEDS: LISINOPRIL 20 MG TAB PO SCH (07:57)
[2019-03-15] MEDS: PANTOPRAZOLE SOD 40 MG TABEC PO SCH (07:57)
[2019-03-15] MEDS: PHENAZOPYRIDINE HCL 100 MG TAB PO SCH ×2 (07:57→12:36)
[2019-03-15] MEDS: SODIUM CHLORIDE 0.9% 1000ML 1,000 ML IV SCH ×2 (07:57→21:07)
[2019-03-15] MEDS: DOCUSATE SODIUM 100 MG CAP PO SCH ×2 (07:57→17:32)
[2019-03-15] MEDS ORDERED: ONDANSETRON HCL 4 MG ORAL DISINTEGRATING TAB PO PRN (09:45)
--- NOTE | 2019-03-15 09:55 | NUR ---
PATIENT A/O X3, EVEN RESPIRATIONS ON RA. BOWEL SOUNDS PRESENT. CHERY IN PLACE WITH CBI, URINE ORANGE. TELEMETRY #9 SB. RIGHT AC 20 GAUGE IV WITH NS @ 100 CC/HR. NO PAIN AT THIS TIME. AT BEDSIDE, CALL LIGHT IN REACH WILL CONTINUE TO MONITOR PATIENT.
--- NOTE | 2019-03-15 12:46 | NUR ---
Spoke to pt at bedside regarding inpatient rehab order. He gave choice for [facility]. Signed choice letter placed in chart. Copy to pt's transition of care folder. CM left business card with pt for any questions/concerns. Referral was faxed to [phone]. Loan Peters, liaison with [facility] was notified.
--- NOTE | 2019-03-15 13:25 | NUR ---
REMOVED PATIENTS CHERY. CATHETER TIP INTACT ON REMOVAL. PATIENT DUE TO VOID.
--- NOTE | 2019-03-15 14:59 | NUR ---
PATIENT HAS VOIDED SINCE CHERY REMOVAL. SERIAL URINE BEING COLLECTED.
--- NOTE | 2019-03-15 15:21 | Consultation ---
DATE OF CONSULTATION: 03/15/2019 I would like to thank Dr. Pickens for asking me to see Mr. Ty in consultation. REASON FOR CONSULTATION: HISTORY: The patient is a pleasant March 11, patient had symptoms of imbalance. 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 He also states that on Wednesday prior to surgery, he went to the gym and afterwards he started feeling imbalance and this might have been some of the early symptoms of his stroke. The patient had some left arm and left leg impairment and impaired gait. The patient underwent a TURP on March 13. He had also stopped taking aspirin earlier in the month of his planned surgery. The patient following surgery, underwent workup, was seen by Dr. Causey. An MRI revealed prostate cancer. SOCIAL HISTORY: Lives with his in one-story home, was otherwise independent prior to his admission. He is retired from retail sales management. He is former cigar smoker, but has not smoked in the last 20 years. ALLERGIES: NO KNOWN DRUG ALLERGIES. LABORATORY DATA: White cell count 11.1, hemoglobin 13.8, hematocrit 41.8, platelets of 206. Sodium is 135, potassium 4.2, BUN of 15, creatinine 0.92. Neck CTA atherosclerotic plaques stenosis and left carotid bulb. No stenosis of the right carotid bulb, approximately 7% stenosis of right vertebral artery origin, mild focal stenosis of the left vertebral artery. CT of the brain showed atherosclerotic plaques, left ASSISTANT OPERATIONS MANAGER is nearly occluded in the P2 segment, moderate stenosis of the proximal left vertebral artery. Mild to moderate stenosis of the right vertebral artery, moderate atherosclerosis in the carotid siphons and mild stenosis on the right. MRI of the brain showed acute ischemic infarct, right paramedian fernanda without hemorrhagic involvement. Mild chronic microvascular ischemic changes. Physical therapy evaluation has been initiated. Walked about feet with unsteady gait, unsteady at turns. PHYSICAL EXAMINATION: GENERAL: The patient is awake, alert, and oriented. He thought it was 1919, but then he said 2019. He said Reed was the president. He knows where he is at. He does have left-sided facial weakness slightly. EYES: Gaze conjugate. No obvious . ORAL: Tongue is midline. NECK: Supple. HEART: Regular rate and rhythm. LUNGS: Fair air entry. No respiratory distress. ABDOMEN: Nondistended. EXTREMITIES: Full range of motion right arm and right leg and some weakness to the left arm and left leg. Sensory regalado, there is diminished sensation in the left arm and leg throughout. Manual muscle testing 5/5 strength in the right arm and leg throughout and in the left arm and leg he demonstrates 4-/5 strength throughout. Clonus negative bilaterally. He has incoordination of the left arm. Clonus negative bilaterally. No increased tone or passive range of motion of arms or legs. Gait again is impaired based on therapy notes. IMPRESSION: 1. Right pontine CVA with left-sided hemiparesis. 2. Status post TURP, used to receive treatment and irrigation. 3. The patient with hypertension. 4. Diabetes. 5. BPH. 6. Chronic low back pain. PLAN: Would make an excellent inpatient rehab candidate, although he can walk longer distances. His quality of gait is poor and impaired. Needs to work on building up strength, endurance, coordination and ADL training. We will follow along with you and check with insurance for rehab. Thank you once again for allowing me to participate in the care of this pleasant but unfortunate patient. Naresh Barajas DO RPL/MODL /[id number]
--- NOTE | 2019-03-15 17:44 | NUR ---
MOT initiated and placed with pt's packet at nurses [address] [address] Pending insurance authorization for transfer.
--- NOTE | 2019-03-15 19:05 | NUR ---
Walking rounds done. Patient is sitting up in restroom complaining of not being able to empty bladder, dribbling, and urgency. Pt was bladder scanned and 358ml per scanner. Dr. Concepcion paged. I explained to patient POC and waiting on MD to call back.
--- NOTE | 2019-03-15 19:45 | NUR ---
20 Nepali Coude catheter placed by charge nurse using aseptic technique. Initially 375cc of dark red urine came out. Patient tolerated well.
[2019-03-15] MEDS: SIMVASTATIN 20 MG TAB PO SCH (21:07)
[2019-03-16] VITALS (7 sets, daily range): BP systolic 133–165; BP diastolic 60–74
[2019-03-16 05:23] LABS: BASOPHILS % 0.2 % (0.0-1.0); EOSINOPHILS # (AUTO) 0.1 (0.0-0.4); EOSINOPHILS % 0.6 % (0.0-6.0); HEMATOCRIT 38.5 % (38.2-49.6); HEMOGLOBIN 12.5 g/dL (14.0-18.0); LYMPHOCYTES # (AUTO) 0.9 (1.0-3.2); LYMPHOCYTES % 9.3 % (18.0-39.1); MEAN CORPUSCULAR HEMOGLOBIN 29.9 pg (28-32); MEAN CORPUSCULAR HGB CONC 32.5 g/dL (31-35); MEAN CORPUSCULAR VOLUME 92.1 fL (81-99); MONOCYTES # (AUTO) 0.7 (0.2-0.8); MONOCYTES % 7.7 % (4.4-11.3); NEUTROPHILS # (AUTO) 7.7 (2.1-6.9); NEUTROPHILS % 81.5 % (38.7-80.0); PLATELET COUNT 204 x10e3/uL (140-360); RED BLOOD COUNT 4.18 x10e6/uL (4.3-5.7); RED CELL DISTRIBUTION WIDTH 12.9 % (11.7-14.4)
[2019-03-16 05:43] LABS: ANION GAP 10.1 mmol/L (8-16); BLOOD UREA NITROGEN 14 mg/dL (7-26); BUN/CREATININE RATIO 14 (6-25); CALCIUM 8.3 mg/dL (8.4-10.2); CARBON DIOXIDE 27 mmol/L (22-29); CHLORIDE 106 mmol/L (98-107); CREATININE, SERUM 1.02 mg/dL (0.72-1.25); EST GLOMERULAR FILTRATION RATE > 60 ML/MIN (60-); GLUCOSE 131 mg/dL (74-118); POTASSIUM 4.1 mmol/L (3.5-5.1); SODIUM 139 mmol/L (136-145)
[2019-03-16] MEDS: CEFTRIAXONE SOD 1 GM/NS 50 ML 50 ML IV SCH (05:44)
--- NOTE | 2019-03-16 07:18 | NUR ---
RECEIVED PATIENT AWAKE RESTING IN BED NO SIGNS OF DISTRESS. BED LOW, WHEELS LOCKED, SIDE RAILS X2. CALL LIGHT IN REACH WILL CONTINUE TO MONITOR PATIENT.
[2019-03-16] MEDS: INSULIN REGULAR, HUMAN 100 UNIT/1 ML 3ML VIAL SQ SCH ×4 (07:30→21:00)
[2019-03-16] MEDS: SODIUM CHLORIDE 0.9% 1000ML 1,000 ML IV SCH ×2 (07:52→17:20)
[2019-03-16] MEDS: LISINOPRIL 20 MG TAB PO SCH (08:22)
[2019-03-16] MEDS: PANTOPRAZOLE SOD 40 MG TABEC PO SCH (08:22)
[2019-03-16] MEDS: ASPIRIN 81 MG CHEW TAB PO SCH (08:22)
[2019-03-16] MEDS: DOCUSATE SODIUM 100 MG CAP PO SCH ×2 (08:22→17:20)
--- NOTE | 2019-03-16 09:30 | NUR ---
PATIENT A/O X3, EVEN RESPIRATIONS ON RA. BOWEL SOUNDS PRESENT. CHERY IN PLACE WITH DARK RED URINE. TELEMETRY #9 SB. RIGHT AC 20 GAUGE IV WITH NS @ 100 CC/HR. NO PAIN AT THIS TIME. AT BEDSIDE, CALL LIGHT IN REACH WILL CONTINUE TO MONITOR PATIENT.
--- NOTE | 2019-03-16 16:39 | NUR ---
PATIENT AMBULATING IN [place]H, STEADY GAIT NO SIGNS OF DISTRESS.
--- NOTE | 2019-03-16 20:19 | NUR ---
patient c/o pressure in bladder, manual irrigation. no clots.
[2019-03-16] MEDS: SIMVASTATIN 20 MG TAB PO SCH (21:02)
[2019-03-17 00:41] VITALS: BP 175/72
[2019-03-17 04:00] VITALS: BP 145/67
[2019-03-17] MEDS: SODIUM CHLORIDE 0.9% 1000ML 1,000 ML IV SCH ×2 (06:00→13:06)
[2019-03-17] MEDS: CEFTRIAXONE SOD 1 GM/NS 50 ML 50 ML IV SCH (06:00)
[2019-03-17 06:25] LABS: BASOPHILS % 0.3 % (0.0-1.0); EOSINOPHILS # (AUTO) 0.1 (0.0-0.4); EOSINOPHILS % 1.3 % (0.0-6.0); HEMATOCRIT 39.6 % (38.2-49.6); HEMOGLOBIN 12.5 g/dL (14.0-18.0); LYMPHOCYTES # (AUTO) 0.9 (1.0-3.2); LYMPHOCYTES % 9.2 % (18.0-39.1); MEAN CORPUSCULAR HEMOGLOBIN 29.1 pg (28-32); MEAN CORPUSCULAR HGB CONC 31.6 g/dL (31-35); MEAN CORPUSCULAR VOLUME 92.3 fL (81-99); MONOCYTES # (AUTO) 0.8 (0.2-0.8); MONOCYTES % 7.8 % (4.4-11.3); NEUTROPHILS # (AUTO) 7.7 (2.1-6.9); NEUTROPHILS % 80.3 % (38.7-80.0); PLATELET COUNT 211 x10e3/uL (140-360); RED BLOOD COUNT 4.29 x10e6/uL (4.3-5.7); RED CELL DISTRIBUTION WIDTH 13.1 % (11.7-14.4)
[2019-03-17 06:57] LABS: ANION GAP 8.3 mmol/L (8-16); BLOOD UREA NITROGEN 13 mg/dL (7-26); BUN/CREATININE RATIO 13 (6-25); CALCIUM 8.6 mg/dL (8.4-10.2); CARBON DIOXIDE 29 mmol/L (22-29); CHLORIDE 106 mmol/L (98-107); EST GLOMERULAR FILTRATION RATE > 60 ML/MIN (60-); GLUCOSE 117 mg/dL (74-118); POTASSIUM 4.3 mmol/L (3.5-5.1); SODIUM 139 mmol/L (136-145)
[2019-03-17] MEDS: INSULIN REGULAR, HUMAN 100 UNIT/1 ML 3ML VIAL SQ SCH ×3 (07:30→16:30)
[2019-03-17 07:48] VITALS: BP 175/71
[2019-03-17] MEDS: PANTOPRAZOLE SOD 40 MG TABEC PO SCH (08:30)
[2019-03-17] MEDS ORDERED: DOCUSATE SODIUM 100 MG CAP PO SCH (09:00)
[2019-03-17] MEDS: ASPIRIN 81 MG CHEW TAB PO SCH (09:55)
[2019-03-17] MEDS: LISINOPRIL 20 MG TAB PO SCH (09:55)
--- NOTE | 2019-03-17 09:58 | NUR ---
WITH STANDBY ASSIST AND USE OF WALKER, PT OOB TO BR
[2019-03-17 10:03] VITALS: BP 175/71
--- NOTE | 2019-03-17 10:30 | NUR ---
MD RAM INTO SEE PT, DISCUSSED POC
--- NOTE | 2019-03-17 10:44 | NUR ---
SITTING IN BS CHAIR, CALL LIGHT WITHIN REACH
[2019-03-17 12:05] VITALS: BP 141/63
--- NOTE | 2019-03-17 16:00 | NUR ---
AMBULATING IN HALLWAY WITH USE OF WALKER, STEADY GAIT, PCT AT SIDE
[2019-03-17 16:16] VITALS: BP 150/65
--- NOTE | 2019-03-17 18:21 | NUR ---
REPORT TO RICHELLE AT [facility], , PT TO BE TRANSFERRED TO ROOM 3088, TELEPHONED AND LEFT MESSAGE FOR SPOUSE CARMINE [phone], LEFT MESSAGE TO MAKE AWARE PT IS TRANSFERRING, AWAITING CALL BACK Addendum: 03/17/19 at 1850 by Lori Walsh RN MIRI NOTED TO HAVE YELLOW URINE AT THIS TIME
--- NOTE | 2019-03-17 20:09 | NUR ---
patient departed via ambulance with alvarenga and IV in place per MD orders. tele returned during am shift. at patient side, belongings with patient and . warehouse team leader notified for MOT. patient aaox3, stable condition.
--- NOTE | 2019-03-18 09:52 | Discharge Summary ---
DISCHARGE DIAGNOSES: 1. Cerebrovascular accident of the right caudate area. 2. Status post transurethral resection of the prostate. 3. Diabetes. 4. Hyperlipidemia. 5. Hypertension. HISTORY OF PRESENT ILLNESS AND HOSPITAL COURSE: See hospital chart for full details. The patient is a gentleman, status post TURP, who did not mention to the surgeon prior to the surgery. About 2 days prior, he started having some weird symptoms, where he felt "off." Postoperatively, it was noticed very quickly that he did not seem to be quite appropriate, so an MRI was done that showed an acute stroke of the right caudate area, which was consistent with his left-sided neurological symptoms. He was seen by Neurology. He had an echo done showing normal EF. He had carotid Dopplers done that showed normal carotids, but he did not have posterior circulation stenosis up to 70%. He was placed on aspirin and cholesterol medications and did well postoperatively from his TURP to go to inpatient rehab under the care of Dr. Barajas, who then transferred over to [place] for inpatient rehab. Please see hospital chart for full details. MD MARIELENA Ortiz/MARSHA /[id number]
== END 2019-03-17 20:09 | DRG 713 ==
LOC: OR 05:20 → PACU V 09:08 → MED/SURG 09:38
PROVIDERS: ADMIT Internal Medicine; ATTEND Internal Medicine
PROC: 0T7D8ZZ Dilation of Urethra, Via Natural or Artificial Opening Endoscopic (ICD-10-PCS; 2019-03-13)
PROC: 0T788ZZ Dilation of Bilateral Ureters, Via Natural or Artificial Opening Endoscopic (ICD-10-PCS; 2019-03-13)
PROC: BT141ZZ Fluoroscopy of Kidneys, Ureters and Bladder using Low Osmolar Contrast (ICD-10-PCS; 2019-03-13)
PROC: 0VT08ZZ Resection of Prostate, Via Natural or Artificial Opening Endoscopic (ICD-10-PCS; principal; 2019-03-13 07:11)
DX: N40.1 Benign prostatic hyperplasia with lower urinary tract symptoms (principal); I63.9 Cerebral infarction, unspecified; G81.94 Hemiplegia, unspecified affecting left nondominant side; R39.14 Feeling of incomplete bladder emptying; M54.5 Low back pain; E11.9 Type 2 diabetes mellitus without complications; I10 Essential (primary) hypertension; G89.29 Other chronic pain; I65.01 Occlusion and stenosis of right vertebral artery; I67.2 Cerebral atherosclerosis; N35.912 Unspecified bulbous urethral stricture, male; R33.8 Other retention of urine; M19.90 Unspecified osteoarthritis, unspecified site; N52.9 Male erectile dysfunction, unspecified; E78.5 Hyperlipidemia, unspecified; K21.9 Gastro-esophageal reflux disease without esophagitis
CPT/HCPCS: 36415; 70496; 70498; 70551; 71046; 74420; 80048; 80061; 82948; 83036; 83735; 85025; 92523; 93005; 93306; 97139; J0696; J1100; J1580; J1817; J2001; J2405; J3010; J7030; Q9967

== ENCOUNTER → 2019-09-30 | Day surgery (SDC) | payer MEDICARE ==
[2019-09-27 16:55] LABS: BASOPHILS % 0.4 % (0.0-1.0); EOSINOPHILS # (AUTO) 0.1 (0.0-0.4); EOSINOPHILS % 1.2 % (0.0-6.0); HEMATOCRIT 40.7 % (38.2-49.6); HEMOGLOBIN 12.9 g/dL (14.0-18.0); MEAN CORPUSCULAR HEMOGLOBIN 29.1 pg (28-32); MEAN CORPUSCULAR HGB CONC 31.7 g/dL (31-35); MEAN CORPUSCULAR VOLUME 91.9 fL (81-99); MONOCYTES # (AUTO) 0.6 (0.2-0.8); MONOCYTES % 7.5 % (4.4-11.3); NEUTROPHILS # (AUTO) 5.6 (2.1-6.9); NEUTROPHILS % 76.5 % (38.7-80.0); PLATELET COUNT 285 x10e3/uL (140-360); RED BLOOD COUNT 4.43 x10e6/uL (4.3-5.7); RED CELL DISTRIBUTION WIDTH 13.3 % (11.7-14.4)
--- NOTE | 2019-09-27 17:06 | Diagnostic Imaging Report ---
EXAMINATION: CHEST 2 VIEWS INDICATION: Pre-operative COMPARISON: None FINDINGS: LINES/TUBES:None LUNGS:The lungs are well-inflated. No focal consolidation or pulmonary edema. PLEURA:No pleural effusion or pneumothorax. MEDIASTINUM:The cardiomediastinal silhouette appears normal in size and shape. BONES/SOFT TISSUES:No acute osseous injury. ABDOMEN:No free air under the diaphragm. IMPRESSION: No focal pneumonia or pulmonary edema. Signed by: Bobby Back MD on 09/27/2019 5:02 PM
[2019-09-27 17:13] LABS: CALCIUM 9.1 mg/dL (8.4-10.2); CREATININE, SERUM 1.23 mg/dL (0.72-1.25)
[~2019-09-30] MED LIST changes: +B&O 60MG R/S 60 MG SUPP PR ONE; +CEFTRIAXONE SOD 1 GM/NS 50 ML 50 ML IV ONE; +FENTANYL CITRATE/PF 100MCG/2 ML INJ ONE; +FIBER0.52 GM PO; +GENTAMICIN 80MG/NS 100 ML 200 ML IV ONE; +GLYCOPYRROLATE INJ 0.2 MG/ML VIAL ONE; +HYDRALAZINE HCL 20 MG/ML VIAL ONE; +IOPAMIDOL 300MG/ML 50ML INFUS..BTL IV ONE; +LIDOCAINE 1% W/EPINEPHRINE 20 ML VIAL ONE; +LIDOCAINE HCL 2% 30 ML TUBE ONE; +LIDOCAINE HCL 2% LOCAL INJ 5 ML SDV VIAL INJ ONE; +LIDOCAINE JELLY 2% 10ML URO-JET ONE; +METOCLOPRAMIDE HCL 10 MG/2ML VIAL ONE; +MULTIVITAMINS1 EAC7 PO; +ONDANSETRON HCL INJ 2MG/ML 2ML 2 MG/ML VIAL ONE; +OXYBUTYNIN CHLOR5 MG PO; +PLAVIX75 MG PO; +PROBIOTIC & AC1 EACH PO; +PROPOFOL IV EMULSION 10 MG/ML 20 ML VIAL ONE; +SEVOFLURANE INHAL SOLN 250 ML PEN BTL ONE
[2019-09-30 12:50] VITALS: BP 161/82
--- NOTE | 2019-09-30 19:13 | Operative Report ---
DATE OF PROCEDURE: 09/30/2019 SURGEON: Bj Concepcion MD PREOPERATIVE DIAGNOSES: 1. Recurrent urethral stricture disease that is severe. 2. Urinary tract infection. 3. History of gross hematuria. 4. History of microhematuria. OPERATIONS PERFORMED: 1. Cystourethroscopy with calibration and dilation of severe fossa navicularis urethral stricture (separate procedure performed for the severe stricture). 2. Cystourethroscopy with direct vision internal urethrotomy (separate procedure performed for the short, dense and severe bulbar urethral stricture). 3. Cystourethroscopy with bilateral ureteral catheterization and retrograde ureteropyelography (separate procedure performed for the urinary tract infections and hematuria). 4. Interpretation of retrograde ureteropyelography. 5. Interpretation of cystography. 6. Supervision of fluoroscopy, no radiologist present. ANESTHESIA: General. COMPLICATIONS: None. CLINICAL SUMMARY: Beto Ty is a 74-year-old man, who had significant BPH and underwent transurethral resection of the prostate in February 2019. Following this, the patient unfortunately had a stroke. The patient then developed urethral stricture disease. He was dilated at the fossa navicularis level on numerous occasions. He was also dilated over a guidewire for pinhole bulbar urethral stricture in the office on July 26, 2019. The patient's symptomatology recurred and he found it more, more difficult to catheterize his fossa navicularis stricture. Therefore, he was brought to the operating room today to evaluate and manage his recurrent and difficult to treat strictures. The patient saw his neurologist, who told him that he was at high risk to discontinue his anticoagulant medications, however, he also noted that the patient and his understand the risks and are willing to accept them in order to restore his ability to void. The patient is aware of the risks of bleeding, infection, injury to adjacent structures, need for additional procedures, potential for additional strokes. He also understands that should this procedure not performed, the alternative could be a suprapubic cystostomy on a chronic basis. The patient's understood all these risks and elected to proceed. OPERATIVE PROCEDURE IN DETAIL: Informed consent was verified. Beto Ty was properly identified, taken to the operating room, placed on the cystoscopy table in supine position. Anesthesia was uneventfully begun. The patient was then carefully gently repositioned into the dorsal lithotomy position with all pressure points well padded. His genitalia were prepared and draped in usual sterile fashion. We were unable to place the cystoscope sheath beyond the urethral meatus due to severe fossa navicularis stricture. The stricture was calibrated approximately 8-Tristanian in size and dilated progressively to 28-Tristanian in size utilizing female sounds. There was some friable scar tissue that we removed as it was hanging out at the level of the urethral meatus and was sent for histopathological analysis. We let the sound stay in place for approximately 5 minutes and we injected the glans penis with lidocaine with epi to decrease bleeding as well as decrease the patient's reaction as he seemed to be having some degree of painful reaction under the anesthesia. Once this was performed, the direct vision urethrotome was inserted under direct vision, guided down, there was normal urethra to the bulbar region where there was a pinhole stricture that could barely accommodate a 0.035 inch guidewire. We utilized the blade to incise at the 12 o'clock position down to friable tissue that was no longer scarred. It did not bleed significantly. We then passed through the normal sphincteric region. The external urinary sphincter was not involved with this stricture and was several millimeters proximal to it. The prostate bed was wide open with completely reepithelialized prostatic urethra. Panendoscopy of the urinary bladder revealed grade 2 trabeculations, no tumors, no stones, no diverticula. Normally positioned and configured ureteral orifices were identified. An 8-Tristanian catheter was used to cannulate each ureter and retrograde ureteropyelograms were performed. Interpretation of retrograde ureteropyelography contrast was instilled in retrograde fashion bilaterally. There were no tumors, there were no stones, there were no true diverticula. Unobstructed drainage was observed bilaterally fluoroscopically. There was ureteral fullness bilaterally and some mild fullness of the more upper collecting systems, but there were no suspicious lesions or unobstructed drainage was observed fluoroscopically. It should be noted that the bladder was rather distended and this potentially could be a chronic position due to the severe recurrent bulbar urethral stricture. Over the guidewire, a 24-Tristanian Rodriguez catheter was placed that was modified as a Edinburgh tip. The balloon was filled with 30 mL of sterile water. The bladder was then drained. Contrast was then injected into the Rodriguez catheter and performed cystography. INTERPRETATION OF CYSTOGRAPHY: The bladder wall was relatively smooth, but did exhibit some trabeculations. The prostate bed was wide open following transurethral resection. 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 A belladonna and opium suppository were placed revealing a 35 g prostate that is smooth, non-fluctuant without any nodules. The patient was then uneventfully reversed from anesthesia and taken to the recovery room in stable condition. There were no complications to the procedure. The patient tolerated the procedure well. PLAN: Plan will be to resume the patient's anticoagulants over the next couple of days and takes a course of antibiotics with a catheter in place and follow up in 2-3 weeks to remove his Rodriguez catheter. Followup management will be discussed with the patient, it will include intermittent catheterizations in hopes of preventing recurrence. MD ANNETTE Warren/MARSHA /[id number]
== END | disposition home or self-care (01) ==
LOC: OR 09:55
PROVIDERS: ATTEND Urology
DX: N35.912 Unspecified bulbous urethral stricture, male (principal); N39.0 Urinary tract infection, site not specified; I10 Essential (primary) hypertension; I69.328 Other speech and language deficits following cerebral infarction; I69.354 Hemiplegia and hemiparesis following cerebral infarction affecting left non-dominant side; Z88.8 Allergy status to other drugs, medicaments and biological substances; E29.1 Testicular hypofunction; N40.1 Benign prostatic hyperplasia with lower urinary tract symptoms; N39.41 Urge incontinence; R39.14 Feeling of incomplete bladder emptying; R35.1 Nocturia; N32.81 Overactive bladder; N50.0 Atrophy of testis; Z01.810 Encounter for preprocedural cardiovascular examination; Z01.812 Encounter for preprocedural laboratory examination; Z01.811 Encounter for preprocedural respiratory examination
CPT/HCPCS: 36415; 52276; 71046; 74420; 80048; 85025; 88305; 93005; C1758; C1769; J0360; J0696; J1580; J2001; J2405; J2704; J2765; J3010; Q9967; 88304

== ENCOUNTER 2020-03-18 11:34 | Inpatient (IN) | payer MEDICARE, OTHER ==
[2020-03-13 11:32] LABS: BASOPHILS % 0.4 % (0.0-1.0); EOSINOPHILS # (AUTO) 0.1 (0.0-0.4); EOSINOPHILS % 1.3 % (0.0-6.0); HEMATOCRIT 42.6 % (38.2-49.6); HEMOGLOBIN 13.5 g/dL (14.0-18.0); LYMPHOCYTES # (AUTO) 0.8 (1.0-3.2); LYMPHOCYTES % 11.8 % (18.0-39.1); MEAN CORPUSCULAR HGB CONC 31.7 g/dL (31-35); MEAN CORPUSCULAR VOLUME 91.6 fL (81-99); MONOCYTES # (AUTO) 0.6 (0.2-0.8); NEUTROPHILS # (AUTO) 5.1 (2.1-6.9); NEUTROPHILS % 76.8 % (38.7-80.0); PLATELET COUNT 270 x10e3/uL (140-360); RED BLOOD COUNT 4.65 x10e6/uL (4.3-5.7); RED CELL DISTRIBUTION WIDTH 12.9 % (11.7-14.4)
[2020-03-13 11:47] LABS: ANION GAP 14.6 mmol/L (8-16); BLOOD UREA NITROGEN 16 mg/dL (7-26); BUN/CREATININE RATIO 15 (6-25); CALCIUM 8.7 mg/dL (8.4-10.2); CARBON DIOXIDE 25 mmol/L (22-29); CHLORIDE 105 mmol/L (98-107); CREATININE, SERUM 1.06 mg/dL (0.72-1.25); EST GLOMERULAR FILTRATION RATE > 60 ML/MIN (60-); GLUCOSE 112 mg/dL (74-118); POTASSIUM 4.6 mmol/L (3.5-5.1); SODIUM 140 mmol/L (136-145)
[~2020-03-18] VITALS: Ht 172.7 cm; Wt 77.6 kg
[~2020-03-18 11:34] MED LIST changes: -B&O 60MG R/S 60 MG SUPP PR ONE; -CEFTRIAXONE SOD 1 GM/NS 50 ML 50 ML IV ONE; +FAMOTIDINE20 MG PO; -FENTANYL CITRATE/PF 100MCG/2 ML INJ ONE; +FLUTICASONE PRO16 GM; -GENTAMICIN 80MG/NS 100 ML 200 ML IV ONE; -GLYCOPYRROLATE INJ 0.2 MG/ML VIAL ONE; -HYDRALAZINE HCL 20 MG/ML VIAL ONE; -IOPAMIDOL 300MG/ML 50ML INFUS..BTL IV ONE; -LIDOCAINE 1% W/EPINEPHRINE 20 ML VIAL ONE; -LIDOCAINE HCL 2% 30 ML TUBE ONE; -LIDOCAINE HCL 2% LOCAL INJ 5 ML SDV VIAL INJ ONE; -LIDOCAINE JELLY 2% 10ML URO-JET ONE; -METOCLOPRAMIDE HCL 10 MG/2ML VIAL ONE; +MONTELUKAST SOD10 MG PO; -ONDANSETRON HCL INJ 2MG/ML 2ML 2 MG/ML VIAL ONE; -PROPOFOL IV EMULSION 10 MG/ML 20 ML VIAL ONE; -SEVOFLURANE INHAL SOLN 250 ML PEN BTL ONE
[2020-03-18] MEDS ORDERED: PIPER-TAZ 3.375 GM 50 ML ONE (11:59)
[2020-03-18] MEDS ORDERED: GENTAMICIN 80MG/NS 100 ML 200 ML IV ONE (11:59)
[2020-03-18] MEDS ORDERED: CLINDAMYCIN 600MG / 50ML 50 ML IV ONE (11:59)
[2020-03-18] MEDS ORDERED: ANTIBIOTIC PO ×2 (12:11)
[2020-03-18] MEDS ORDERED: BACITRACIN ZINC 15 GM OINT ONE (13:18)
[2020-03-18] MEDS ORDERED: BUPIVACAINE HCL 0.5% INJ 30 ML VIAL INJ ONE (13:19)
[2020-03-18] MEDS ORDERED: VANCOMYCIN HCL 500 MG ONE (16:16)
[2020-03-18] MEDS ORDERED: NALOXONE HCL INJ 0.4 MG/ML AMP IV PRN (17:15)
[2020-03-18] MEDS ORDERED: DIPHENHYDRAMINE HCL 25 MG CAP PO PRN (17:15)
[2020-03-18] MEDS ORDERED: ONDANSETRON HCL INJ 2MG/ML 2ML 2 MG/ML VIAL IV PRN (17:15)
[2020-03-18] MEDS ORDERED: FENTANYL CITRATE/PF 100MCG/2 ML INJ ONE (17:31)
[2020-03-18] MEDS ORDERED: MIDAZOLAM HCL 2 MG/2 ML VIAL ONE (17:31)
[2020-03-18] MEDS: MORPHINE SULFATE 1 MG/ML 30ML PCA IV PRN ×2 (17:47→19:38)
--- OUTSIDE RECORDS SUMMARY | 2020-03-18 18:15 | XMS REPORT | Continuity of Care Document ---
Author Author [facility] t Organization [facility] Address [address] [place] [address] Phone Unavailable Care Team Providers Care Full Service Supervisor Name Role Phone SHY TRUJILLO MD PCP HAMPEL, LEO Attphys Unavailable SHY TRUJILLO Attphys Unavailable MANEEVESE, V CLARISSE Attphys Unavailable SHY TRUJILLO Admphys Unavailable Payers Payer Name Policy Type Policy Number Effective Date Expiration Date S ource Problems This patient has no known problems. Allergies, Adverse Reactions, Alerts Allergy Name Allergy Type Status Severity Reaction(s) Onset Date Inacti ve Date Treating Clinician Comments Source No Known Allergies DA Active U 2019-03-17 00:00:00 [facility] SKIN CREAM Allergy to Substance Active 2019-03-06 00:00:00 [facility] Medications Ordered Medication Name Filled Medication Name Start Date Stop Da te Current Medication? Ordering Clinician Indication Dosage Frequency Signature (SIG) Comments Components Source Aspirin (Aspir 81) 81 Mg Tablet. Aspirin (Aspir 81) 81 Mg Tablet. Yes 81 Daily [facility] Lisinopril 40 Mg Tablet Lisinopril 40 Mg Tablet Yes 40 Daily [facility] Lovastatin 20 Mg Tablet Lovastatin 20 Mg Tablet Yes 20 Bedtime [facility] Pantoprazole Sodium (Protonix) 40 Mg Tablet. Pantopr azole Sodium (Protonix) 40 Mg Tablet. Yes 40 Daily [facility] Tamsulosin Hcl (Flomax*) 0.4 Mg Cap Tamsulosin Hcl (Flomax*) 0.4 Mg C ap Yes .4 Bedtime [facility] Testosterone Cypionate 200 Mg/1 Ml Vial Testosterone Cypiona te 200 Mg/1 Ml Vial Yes 2 Q2wks [facility] Ranitidine Hcl 300 Mg Capsule, 300 Mg Oral Ranitidine Hcl 300 Mg Capsule, 300 Mg Oral 2019-03-06 00:00:00 No 300 Bedtime [facility] Procedures Procedure Date / Time Performed Performing Clinician Formerly [facility] cecil Magnetic resonance imaging of brain without contrast 2019-02 00:00:00 SHY TRUJILLO [facility] Computed tomography angiography of brain 2019-03-13 00:00:00 JOVANNY DAVILA [facility] CT angiography of neck 2019-03-13 00:00:00 JOVANNY DAVILA [facility] RESECTION OF PROSTATE, ENDO 2019-03-13 00:00:00 [facility] DILATION OF URETHRA, ENDO 2019-03-13 00:00:00 [facility] DILATION OF BILATERAL URETERS, ENDO 2019-03-13 00:00:00 [facility] FLUOROSCOPY OF KIDNEY, URETER & BLADDER USING L OSM CO NTRAST 2019-03-13 00:00:00 [facility] X-ray of chest, two views 2019-03-06 00:00:00 [facility] Encounters Start Date/Time End Date/Time [facility] ID Source 2019-07-16 19:39:00 2019-07-16 20:44:00 Departed Emergency Room [facility] [id number] [facility] 2019-03-13 09:08:00 2019-03-17 20:09:00 Discharged Inpatient 3 SHY TRUJILLO [facility] [id number] [facility] 2018-03-13 08:41:00 2018-03-13 13:49:00 Departed Emergency Room 1 CLARISSE LUO [facility] [id number] [facility] Results Test Description Test Time Test Comments Results Result Comments Source CHEST 2 VIEWS 2019-09-27 17:02:00 [facility] [address] [address] Patient Name: ANGELA RINALDI MR #: [id number] : 1945 Age/Sex: 74/M Req #: [id number] Adm Physician: Ordered by: LEO RAM MD Report #: [id number] Location: OR Room/Bed: Procedure: [id number] DX/CHEST 2 VIEWS Exam Date: 09/27/19 Exam Time: 1600 REPORT STATUS: Signed EXAMINATION: CHEST 2 VIEWS INDICATION: Pre-operative COMPARISON: None FINDINGS: LINES/TUBES:None LUNGS:The lungs are well-inflated. No focal consolidation or pulmonary edema. PLEURA:No pleural effusion or pneumothorax. MEDIASTINUM:The cardiomediastinal silhouette appears normal in size and shape. BONES/SOFT TISSUES:No acute osseous injury. ABDOMEN:No free air under the diaphragm. IMPRESSION: No focal pneumonia or pulmonary edema. Signed by: Ayala Silva MD on 09/27/2019 5:02 PM Dictated By: AYALA SILVA MD 01 Transcribed By: DAVID on 09/27/191701 COPY TO: LEO RAM MD GLUBED 2019-04-03 10:15:00 Test Item GLUBED (test code = GLUBED) 110 mg/dL 74-106 H Performed by certified cellophane press operator at [facility] [id number] 10:13:00* Test Item Value Reference Range Interpretation Comments GLUBED (test code = GLUBED) 197 mg/dL 74-106 H Performed by certified cellophane press operator at [facility] [id number] 07:08:00* Test Item Value Reference Range Interpretation Comments GLUBED (test code = GLUBED) 116 mg/dL 74-106 H Performed by certified cellophane press operator at [facility] [id number] 15:52:00* Test Item Value Reference Range Interpretation Comments GLUBED (test code = GLUBED) 177 mg/dL 74-106 H Performed by certified cellophane press operator at [facility] URINALYSIS [id number] 13:53:00* Test Item Value Reference Range Interpretation Comments UA COLOR (test code = COLU) YELLOW YELLOW UA APPEARANCE (test code = APPU) Cloudy CLEAR A UA GLUCOSE DIPSTICK (test code = DGLUU) NEGATIVE mg/dL NEGATIVE UA BILIRUBIN DIPSTICK (test code = BILU) NEGATIVE mg/dL NEGATIVE UA KETONE DIPSTICK (test code = KETU) NEGATIVE mg/dL NEGATIVE UA SPECIFIC GRAVITY (test code = SGU) 1.020 1.001-1.035 UA BLOOD DIPSTICK (test code = ELEAZAR) 1.0 mg/dL (3+) mg/dL NEGATIVE A UA PH DIPSTICK (test code = MIHAI) 6.0 5.0-8.0 UA PROTEIN DIPSTICK (test code = PROU) 50 (1+) mg/dL NEGATIVE A UA UROBILINIOGEN DIPSTICK (test code = URO) Normal mg/dL NEGATIVE UA NITRITE DIPSTICK (test code = KAYLEY) NEGATIVE NEGATIVE UA LEUKOCYTE ESTERASE W REFLEX (test code = LEUUR) 75 Sravan/uL (1+) Sravan/uL NEGATIVE A UA WBC (test code = WBCU) 51-100 per HPF 0-5 A UA RBC (test code = RBCU) >200 #/HPF 0-5 UA EPITHELIAL CELLS (test code = EPIU) FEW per HPF FEW UA BACTERIA (test code = BACU) FEW #/HPF NONE A SPECIMEN COMMENTS: URINE CULTURE WANTED TOO - TURP 03/13Urine Source? Clean Catch [id number] 07:38:00* Test Item Value Reference Range Interpretation Comments GLUBED (test code = GLUBED) 112 mg/dL 74-106 H Performed by certified cellophane press operator at [facility] [id number] 16:32:00* Test Item Value Reference Range Interpretation Comments GLUBED (test code = GLUBED) 157 mg/dL 74-106 H Performed by certified cellophane press operator at [facility] [id number] 07:14:00* Test Item Value Reference Range Interpretation Comments GLUBED (test code = GLUBED) 119 mg/dL 74-106 H Performed by certified cellophane press operator at [facility] [id number] 15:56:00* Test Item Value Reference Range Interpretation Comments GLUBED (test code = GLUBED) 136 mg/dL 74-106 H Performed by certified cellophane press operator at [facility] [id number] 07:51:00* Test Item Value Reference Range Interpretation Comments GLUBED (test code = GLUBED) 109 mg/dL 74-106 H Performed by certified cellophane press operator at [facility] [id number] 16:30:00* Test Item Value Reference Range Interpretation Comments GLUBED (test code = GLUBED) 148 mg/dL 74-106 H Performed by certified cellophane press operator at [facility] [id number] 07:24:00* Test Item Value Reference Range Interpretation Comments GLUBED (test code = GLUBED) 115 mg/dL 74-106 H Performed by certified cellophane press operator at [facility] [id number] 17:02:00* Test Item Value Reference Range Interpretation Comments GLUBED (test code = GLUBED) 122 mg/dL 74-106 H Performed by certified cellophane press operator at [facility] [id number] 07:11:00* Test Item Value Reference Range Interpretation Comments GLUBED (test code = GLUBED) 122 mg/dL 74-106 H Performed by certified cellophane press operator at [facility] [id number] 16:46:00* Test Item Value Reference Range Interpretation Comments GLUBED (test code = GLUBED) 143 mg/dL 74-106 H Performed by certified cellophane press operator at [facility] [id number] 07:31:00* Test Item Value Reference Range Interpretation Comments GLUBED (test code = GLUBED) 107 mg/dL 74-106 H Performed by certified cellophane press operator at [facility] [id number] 16:13:00* Test Item Value Reference Range Interpretation Comments GLUBED (test code = GLUBED) 130 mg/dL 74-106 H Performed by certified cellophane press operator at [facility] [id number] 07:25:00* Test Item Value Reference Range Interpretation Comments GLUBED (test code = GLUBED) 103 mg/dL 74-106 N Performed by certified cellophane press operator at [facility] [id number] 11:14:00* Test Item Value Reference Range Interpretation Comments GLUBED (test code = GLUBED) 128 mg/dL 74-106 H Performed by certified cellophane press operator at [facility] [id number] 07:16:00* Test Item Value Reference Range Interpretation Comments GLUBED (test code = GLUBED) 124 mg/dL 74-106 H Performed by certified cellophane press operator at [facility] [id number] 11:25:00* Test Item Value Reference Range Interpretation Comments GLUBED (test code = GLUBED) 103 mg/dL 74-106 N Performed by certified cellophane press operator at [facility] [id number] 07:24:00* Test Item Value Reference Range Interpretation Comments GLUBED (test code = GLUBED) 106 mg/dL 74-106 N Performed by certified cellophane press operator at [facility] [id number] 15:48:00* Test Item Value Reference Range Interpretation Comments GLUBED (test code = GLUBED) 145 mg/dL 74-106 H Performed by certified cellophane press operator at [facility] [id number] 12:11:00* Test Item Value Reference Range Interpretation Comments GLUBED (test code = GLUBED) 125 mg/dL 74-106 H Performed by certified cellophane press operator at [facility] [id number] 08:14:00* Test Item Value Reference Range Interpretation Comments GLUBED (test code = GLUBED) 100 mg/dL 74-106 N Performed by certified cellophane press operator at [facility] [id number] 21:11:00* Test Item Value Reference Range Interpretation Comments GLUBED (test code = GLUBED) 153 mg/dL 74-106 H Performed by certified cellophane press operator at [facility] [id number] 20:19:00* Test Item Value Reference Range Interpretation Comments GLUBED (test code = GLUBED) 204 mg/dL 74-106 H Performed by certified cellophane press operator at [facility] [id number] 16:13:00* Test Item Value Reference Range Interpretation Comments GLUBED (test code = GLUBED) 137 mg/dL 74-106 H Performed by certified cellophane press operator at [facility] [id number] 11:52:00* Test Item Value Reference Range Interpretation Comments GLUBED (test code = GLUBED) 110 mg/dL 74-106 H Performed by certified cellophane press operator at [facility] [id number] 07:16:00* Test Item Value Reference Range Interpretation Comments GLUBED (test code = GLUBED) 116 mg/dL 74-106 H Performed by certified cellophane press operator at [facility] [id number] 20:34:00* Test Item Value Reference Range Interpretation Comments GLUBED (test code = GLUBED) 146 mg/dL 74-106 H Performed by certified cellophane press operator at [facility] [id number] 16:21:00* Test Item Value Reference Range Interpretation Comments GLUBED (test code = GLUBED) 159 mg/dL 74-106 H Performed by certified cellophane press operator at [facility] [id number] 11:34:00* Test Item Value Reference Range Interpretation Comments GLUBED (test code = GLUBED) 119 mg/dL 74-106 H Performed by certified cellophane press operator at [facility] [id number] 07:35:00* Test Item Value Reference Range Interpretation Comments GLUBED (test code = GLUBED) 107 mg/dL 74-106 H Performed by certified cellophane press operator at [facility] [id number] 21:54:00* Test Item Value Reference Range Interpretation Comments GLUBED (test code = GLUBED) 163 mg/dL 74-106 H Performed by certified cellophane press operator at [facility] Bedside Agvbnhb8719-54-67 18:11:00* Test Item Value Reference Range Interpretation Comments Bedside Glucose (test code = 50913-5) 138 70-120 H Meter ID: [id number] Medical CenterBedside Glucose 2019-03-17 18:11:00* Test Item Value Reference Range Interpretation Comments Bedside Glucose (test code = 85981-9) 138 70-120 H Meter ID: [id number] Medical CenterWhite Blood Count 2019-03-17 07:34:00* Test Item Value Reference Range Interpretation Comments White Blood Count (test code = 6690-2) 9.60 4.8-10.8 [facility] Blood [id number] 07:34:00* Test Item Value Reference Range Interpretation Comments Red Blood Count (test code = 789-8) 4.29 4.3-5.7 L [facility] HospitalHemoglobin2019-08-30 07:34:00* Test Item Value Reference Range Interpretation Comments Hemoglobin (test code = 98220-0) 12.5 14.0-18.0 L [facility] HospitalHematocrit2019-08-30 07:34:00* Test Item Value Reference Range Interpretation Comments Hematocrit (test code = 4544-3) 39.6 38.2-49.6 [facility] HospitalMean Corpuscular [id number] 07:34:00* Test Item Value Reference Range Interpretation Comments Mean Corpuscular Volume (test code = 787-2) 92.3 81-99 [facility] HospitalMean Corpuscular Ecnwfrzenh8205-86-71 07:34:00* Test Item Value Reference Range Interpretation Comments Mean Corpuscular Hemoglobin (test code = 785-6) 29.1 28-32 [facility] HospitalMean Corpuscular Hemoglobin Concent 2019-03-17 07:34:00* Test Item Value Reference Range Interpretation Comments Mean Corpuscular Hemoglobin Concent (test code = 786-4) 31.6 31-35 [facility] HospitalRed Cell Distribution [id number] 07:34:00* Test Item Value Reference Range Interpretation Comments Red Cell Distribution Width (test code = 50529-5) 13.1 11.7 -14.4 [facility] HospitalPlatelet Jcuzq3683-09-51 07:34:00* Test Item Value Reference Range Interpretation Comments Platelet Count (test code = 777-3) 211 140-360 [facility] HospitalNeutrophils (%) (Auto)2019-03-17 07:34:00 * Test Item Value Reference Range Interpretation Comments Neutrophils (%) (Auto) (test code = 33372-5) 80.3 38.7-80.0 H [facility] HospitalLymphocytes (%) (Auto)2019-03-17 07:34:00 * Test Item Value Reference Range Interpretation Comments Lymphocytes (%) (Auto) (test code = 736-9) 9.2 18.0-39.1 L [facility] HospitalMonocytes (%) (Auto)2019-03-17 07:34:00* Test Item Value Reference Range Interpretation Comments Monocytes (%) (Auto) (test code = 5905-5) 7.8 4.4-11.3 [facility] HospitalEosinophils (%) (Auto)2019-03-17 07:34:00 * Test Item Value Reference Range Interpretation Comments Eosinophils (%) (Auto) (test code = 713-8) 1.3 0.0-6.0 [facility] HospitalBasophils (%) (Auto)2019-03-17 07:34:00* Test Item Value Reference Range Interpretation Comments Basophils (%) (Auto) (test code = 706-2) 0.3 0.0-1.0 [facility] HospitalIM GRANULOCYTES %2019-03-17 07:34:00* Test Item Value Reference Range Interpretation Comments IM GRANULOCYTES % (test code = IM GRANULOCYTES %) 1.1 0.0- 1.0 H [facility] HospitalNeutrophils # (Auto)2019-03-17 07:34:00* Test Item Value Reference Range Interpretation Comments Neutrophils # (Auto) (test code = 751-8) 7.7 2.1-6.9 H [facility] HospitalLymphocytes # (Auto)2019-03-17 07:34:00* Test Item Value Reference Range Interpretation Comments Lymphocytes # (Auto) (test code = 76569-5) 0.9 1.0-3.2 L [facility] HospitalMonocytes # (Auto)2019-03-17 07:34:00* Test Item Value Reference Range Interpretation Comments Monocytes # (Auto) (test code = 742-7) 0.8 0.2-0.8 [facility] HospitalEosinophils # (Auto)2019-03-17 07:34:00* Test Item Value Reference Range Interpretation Comments Eosinophils # (Auto) (test code = 711-2) 0.1 0.0-0.4 [facility] HospitalBasophils # (Auto)2019-03-17 07:34:00* Test Item Value Reference Range Interpretation Comments Basophils # (Auto) (test code = 704-7) 0.0 0.0-0.1 [facility] HospitalAbsolute Immature Granulocyte (auto 2019-03-17 07:34:00* Test Item Value Reference Range Interpretation Comments Absolute Immature Granulocyte (auto (valeriano t code = Absolute Immature Granulocyte (auto) 0.11 0-0.1 H [facility] HospitalWhite Blood [id number] 07:34:00* Test Item Value Reference Range Interpretation Comments White Blood Count (test code = 6690-2) 9.60 4.8-10.8 [facility] HospitalRed Blood Zagkq3235-94-80 07:34:00* Test Item Value Reference Range Interpretation Comments Red Blood Count (test code = 789-8) 4.29 4.3-5.7 L [facility] HospitalHemoglobin2019-08-30 07:34:00* Test Item Value Reference Range Interpretation Comments Hemoglobin (test code = 40380-2) 12.5 14.0-18.0 L [facility] HospitalHematocrit2019-08-30 07:34:00* Test Item Value Reference Range Interpretation Comments Hematocrit (test code = 4544-3) 39.6 38.2-49.6 [facility] HospitalMean Corpuscular Yjvrmh9201-61-98 07:34:00* Test Item Value Reference Range Interpretation Comments Mean Corpuscular Volume (test code = 787-2) 92.3 81-99 [facility] HospitalMean Corpuscular Udqefagmgn0050-84-53 07:34:00* Test Item Value Reference Range Interpretation Comments Mean Corpuscular Hemoglobin (test code = 785-6) 29.1 28-32 [facility] HospitalMean Corpuscular Hemoglobin Concent 2019-03-17 07:34:00* Test Item Value Reference Range Interpretation Comments Mean Corpuscular Hemoglobin Concent (test code = 786-4) 31.6 31-35 [facility] HospitalRed Cell Distribution Oackk8296-11-00 07:34:00* Test Item Value Reference Range Interpretation Comments Red Cell Distribution Width (test code = 84439-8) 13.1 11.7 -14.4 [facility] HospitalPlatelet Vcyna6550-41-91 07:34:00* Test Item Value Reference Range Interpretation Comments Platelet Count (test code = 777-3) 211 140-360 [facility] HospitalNeutrophils (%) (Auto)2019-03-17 07:34:00 * Test Item Value Reference Range Interpretation Comments Neutrophils (%) (Auto) (test code = 57583-8) 80.3 38.7-80.0 H [facility] HospitalLymphocytes (%) (Auto)2019-03-17 07:34:00 * Test Item Value Reference Range Interpretation Comments Lymphocytes (%) (Auto) (test code = 736-9) 9.2 18.0-39.1 L [facility] HospitalMonocytes (%) (Auto)2019-03-17 07:34:00* Test Item Value Reference Range Interpretation Comments Monocytes (%) (Auto) (test code = 5905-5) 7.8 4.4-11.3 [facility] HospitalEosinophils (%) (Auto)2019-03-17 07:34:00 * Test Item Value Reference Range Interpretation Comments Eosinophils (%) (Auto) (test code = 713-8) 1.3 0.0-6.0 [facility] HospitalBasophils (%) (Auto)2019-03-17 07:34:00* Test Item Value Reference Range Interpretation Comments Basophils (%) (Auto) (test code = 706-2) 0.3 0.0-1.0 [facility] HospitalIM GRANULOCYTES %2019-03-17 07:34:00* Test Item Value Reference Range Interpretation Comments IM GRANULOCYTES % (test code = IM GRANULOCYTES %) 1.1 0.0- 1.0 H [facility] HospitalNeutrophils # (Auto)2019-03-17 07:34:00* Test Item Value Reference Range Interpretation Comments Neutrophils # (Auto) (test code = 751-8) 7.7 2.1-6.9 H [facility] HospitalLymphocytes # (Auto)2019-03-17 07:34:00* Test Item Value Reference Range Interpretation Comments Lymphocytes # (Auto) (test code = 07285-9) 0.9 1.0-3.2 L [facility] HospitalMonocytes # (Auto)2019-03-17 07:34:00* Test Item Value Reference Range Interpretation Comments Monocytes # (Auto) (test code = 742-7) 0.8 0.2-0.8 [facility] HospitalEosinophils # (Auto)2019-03-17 07:34:00* Test Item Value Reference Range Interpretation Comments Eosinophils # (Auto) (test code = 711-2) 0.1 0.0-0.4 [facility] HospitalBasophils # (Auto)2019-03-17 07:34:00* Test Item Value Reference Range Interpretation Comments Basophils # (Auto) (test code = 704-7) 0.0 0.0-0.1 [facility] HospitalAbsolute Immature Granulocyte (auto 2019-03-17 07:34:00* Test Item Value Reference Range Interpretation Comments Absolute Immature Granulocyte (auto (valeriano t code = Absolute Immature Granulocyte (auto) 0.11 0-0.1 H [facility]odium Tzjql2012-96-80 07:04:00* Test Item Value Reference Range Interpretation Comments Sodium Level (test code = 2951-2) 139 136-145 [facility] HospitalPotassium Fmyal5204-48-67 07:04:00* Test Item Value Reference Range Interpretation Comments Potassium Level (test code = 2823-3) 4.3 3.5-5.1 [facility] HospitalChloride Hlodq4443-34-85 07:04:00* Test Item Value Reference Range Interpretation Comments Chloride Level (test code = 2075-0) 106 98-107 [facility] HospitalCarbon Dioxide Jmtil1501-88-36 07:04:00* Test Item Value Reference Range Interpretation Comments Carbon Dioxide Level (test code = 2028-9) 29 22-29 [facility] HospitalAnion Fyh4038-44-53 07:04:00* Test Item Value Reference Range Interpretation Comments Anion Gap (test code = 02329-3) 8.3 8-16 [facility] HospitalBlood Urea Wzsjjuvg2541-35-17 07:04:00* Test Item Value Reference Range Interpretation Comments Blood Urea Nitrogen (test code = 3094-0) 13 7-26 [facility] HospitalCreatinine2019-08-30 07:04:00* Test Item Value Reference Range Interpretation Comments Creatinine (test code = 2160-0) 1.00 0.72-1.25 [facility] HospitalBUN/Creatinine Mznch6403-35-67 07:04:00* Test Item Value Reference Range Interpretation Comments BUN/Creatinine Ratio (test code = 3097-3) 13 01-10 [facility] HospitalEstimat Glomerular Filtration Rate 2019-03-17 07:04:00* Test Item Value Reference Range Interpretation Comments Estimat Glomerular Filtration Rate (test code = 589441456) > 60 >60 Ranges were taken from the National Kidney Disease Education Program and the [facility] literature.Reference ranges:60 or greater: Tyvbtk81-39 ( for 3 consecutive months): Chronic kidney disease 15 or less: Kidney failureHouston Methodist Baytown HospitalGlucose Fdrtc2965-76-02 07:04:00* Test Item Value Reference Range Interpretation Comments Glucose Level (test code = RFL9448) 117 74-118 [facility] HospitalCalcium Noloq5311-79-25 07:04:00* Test Item Value Reference Range Interpretation Comments Calcium Level (test code = 00544-6) 8.6 8.4-10.2 [facility]odium Kbzuw0341-68-20 07:04:00* Test Item Value Reference Range Interpretation Comments Sodium Level (test code = 2951-2) 139 136-145 [facility] HospitalPotassium Ynrjd1050-99-71 07:04:00* Test Item Value Reference Range Interpretation Comments Potassium Level (test code = 2823-3) 4.3 3.5-5.1 [facility] HospitalChloride Qnjaq1840-13-18 07:04:00* Test Item Value Reference Range Interpretation Comments Chloride Level (test code = 2075-0) 106 98-107 [facility] HospitalCarbon Dioxide Xovkj6832-36-41 07:04:00* Test Item Value Reference Range Interpretation Comments Carbon Dioxide Level (test code = 2028-9) 29 22-29 [facility] HospitalAnion Qow1807-73-92 07:04:00* Test Item Value Reference Range Interpretation Comments Anion Gap (test code = 11554-7) 8.3 8-16 [facility] HospitalBlood Urea Bavawmwy8759-04-52 07:04:00* Test Item Value Reference Range Interpretation Comments Blood Urea Nitrogen (test code = 3094-0) 13 7-26 [facility] HospitalCreatinine2019-08-30 07:04:00* Test Item Value Reference Range Interpretation Comments Creatinine (test code = 2160-0) 1.00 0.72-1.25 [facility] HospitalBUN/Creatinine Thajl5090-22-59 07:04:00* Test Item Value Reference Range Interpretation Comments BUN/Creatinine Ratio (test code = 3097-3) 13 6-25 [facility] HospitalEstimat Glomerular Filtration Rate 2019-03-17 07:04:00* Test Item Value Reference Range Interpretation Comments Estimat Glomerular Filtration Rate (test code = 568395442) > 60 >60 Ranges were taken from the National Kidney Disease Education Program and the [facility] literature.Reference ranges:60 or greater: Rpuyqm37-41 ( for 3 consecutive months): Chronic kidney disease 15 or less: Kidney failureCHI Navarro Regional HospitalGlucose Cezbo5095-44-73 07:04:00* Test Item Value Reference Range Interpretation Comments Glucose Level (test code = HDK7385) 117 74-118 [facility] HospitalCalcium Qjjzv0072-41-31 07:04:00* Test Item Value Reference Range Interpretation Comments Calcium Level (test code = 10843-0) 8.6 8.4-10.2 [facility] HospitalCTA XPIAG7662-35-28 23:36:00 [facility] [address] [address] Patient Name: ANGELA RINALDI MR #: [id number] : 1945 Age/Sex: 74/M Req #: [id number] Adm Physician: SHY TRUJILLO MD Ordered by: JOVANNY DAVILA M.D. 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 Comparison studies:None Technique: Axial images were obtained from the thoracic inlet. Multipla live, MIP and volume rendered 3-D images of the neck and [place] were reformatted from the axial source data. Dose modulation, iterative reconstruct ion, and/or weight based adjustment of the mA/kV was utilized to reduce the ra diation dose to as low as reasonably achievable. Intravenous contrast: 10 0 cc of Isovue-370. Findings: Neck CTA: If present, stenosis is c alculated utilizing the NASCET method which calculates the degree of stenosis with reference to the normal lumen of the carotid artery distal to the stenosi s. Aortic arch and great vessels: Mild scattered calcified plaque throughou t the aortic arch. Calcified and soft plaque in the proximal left subclavian r esult in approximately 20% stenosis. Common carotid arteries: Patent, no abnormalities. Carotid bulbs: Moderate calcified plaque bilaterally result in no (0%) stenosis by NASCET criteria on the right and approximately 20% stenosi s on the left. Mild stenosis at the right ECA origin. Nonstenotic calcified pl aque at the left ECA origin. Internal carotid arteries: Patent, no abnorm alities. Vertebral arteries: Patent bilaterally. Calcified and soft plaque at the right vertebral artery origin results in moderate stenosis. Mild stenos is in the left V1 segment, middle left V2 segment Intracranial CTA: No aneurysm or arterial vascular malformation identified. Anterior circu lation: Internal carotid arteries: Patent bilaterally with moderate calcified plaque in the bilateral cavernous and paraophthalmic segments with mild stenos is on the right. No significant stenosis on the left. Middle cerebral art eries: Patent, no proximal branch occlusion or stenosis. Anterior cerebral arteries: The right A1 segment is hypoplastic and not well visualized distally . The left A1 and A2 MANJU segments are patent. Posterior circulation: V ertebral arteries: Calcified plaque on the right results in mild stenosis in t he proximal V4 segment. Calcified and soft plaque on the left result in modera te stenosis in the proximal V4 segment. Basilar artery: Patent, no stenosis . Posterior cerebral arteries: Patent on the right with mild stenosis in th e right P2 segment. The right P1 segment is hypoplastic and the right KILN FIRER is predominantly supplied by a right posterior commuting indicating artery ( KILN FIRER origin). The left P1 and proximal P2 segments are patent. The the left KILN FIRER is occluded or near totally occluded in the mid P2 segment. Anatomical v ariants: Acom: Patent . Pcoms: Right KILN FIRER origin. Not visualized on the left. Vertebral arteries: Right is slightly dominant. Cervical spine: Degenerative changes in the cervical spine with multilevel disc degeneration ( greatest/moderate at C5-C6 and at C6-C7, minimal retrolisthesis of C3 on C4 an d mild multilevel foraminal stenosis due to uncovertebral and facet arthrosis. Incidental findings: Small bilateral maxillary sinus retention cyst with in mild bilateral middle ethmoid mucosal thickening. IMPRESSION: Neck CTA 1. Atherosclerotic plaques as described. 2. Approximately 20% ana maría nosis at the left carotid bulb. 3. No (0%) stenosis at the right carotid bul b by NASCET criteria. 4. Approximately 70% stenosis at the right vertebral ar zena origin. 5. Mild multifocal stenosis in the left vertebral artery. I ntracranial CTA: 1. Atherosclerotic plaques as described. 2. Left KILN FIRER is o ccluded or near totally occluded in the P2 segment. 3. Moderate stenosis in t he proximal left vertebral artery. 4. Mild to moderate stenosis in the proxi mal right vertebral artery. 5. Moderate atherosclerosis in the carotid siphon s with mild stenosis on the right. Signed by: Dr. Arabella Ferguson M.D. on 03/14/2019 12:32 AM Dictated By: ARABELLA FERGUSON MD 003 Transcribed By: DAVID on 03/14/19 32 COPY TO: JOVANNY DAVILA MD CTA WOUM9461-04-09 23:36:[address] [address] Patient Name: ANGELA RINALDI MR #: [id number] : 1945 Age/Sex: 74/M Req #: [id number] Adm Physician: SHY TRUJILLO MD Ordered by: JOVANNY DAVILA M.D. Report #: [id number] Location: MED/SURG Room/Bed: [facility] Procedure: [id number] CT/CTA NECK Exam Date: 03/13/19 Exam Time: REPORT STATUS: Signed History : Stroke, acute pontine infarct seen on recent MRI. Comparison studies:None Technique: Axial images were obtained from the thoracic inlet. Multiplan ar, MIP and volume rendered 3-D images of the neck and [place] were r eformatted from the axial source data. Dose modulation, iterative reconstructi on, and/or weight based adjustment of the mA/kV was utilized to reduce the rad iation dose to as low as reasonably achievable. Intravenous contrast: 100 cc of Isovue-370. Findings: Neck CTA: If present, stenosis is ca lculated utilizing the NASCET method which calculates the degree of stenosis w ith reference to the normal lumen of the carotid artery distal to the stenosis . Aortic arch and great vessels: Mild scattered calcified plaque throughout the aortic arch. Calcified and soft plaque in the proximal left subclavian re sult in approximately 20% stenosis. Common carotid arteries: Patent, no a bnormalities. Carotid bulbs: Moderate calcified plaque bilaterally result in n o (0%) stenosis by NASCET criteria on the right and approximately 20% stenosis on the left. Mild stenosis at the right ECA origin. Nonstenotic calcified marry que at the left ECA origin. Internal carotid arteries: Patent, no abnorma lities. Vertebral arteries: Patent bilaterally. Calcified and soft plaque a t the right vertebral artery origin results in moderate stenosis. Mild stenosi s in the left V1 segment, middle left V2 segment Intracranial CTA: No aneurysm or arterial vascular malformation identified. Anterior circul ation: Internal carotid arteries: Patent bilaterally with moderate calcified p laque in the bilateral cavernous and paraophthalmic segments with mild stenosi s on the right. No significant stenosis on the left. Middle cerebral lula babar: Patent, no proximal branch occlusion or stenosis. Anterior cerebral a rteries: The right A1 segment is hypoplastic and not well visualized distally. The left A1 and A2 MANJU segments are patent. Posterior circulation: Ve rtebral arteries: Calcified plaque on the right results in mild stenosis in th e proximal V4 segment. Calcified and soft plaque on the left result in moderat e stenosis in the proximal V4 segment. Basilar artery: Patent, no stenosis. Posterior cerebral arteries: Patent on the right with mild stenosis in the right P2 segment. The right P1 segment is hypoplastic and the right KILN FIRER is predominantly supplied by a right posterior commuting indicating artery ( KILN FIRER origin). The left P1 and proximal P2 segments are patent. The the left KILN FIRER is occluded or near totally occluded in the mid P2 segment. Anatomical va riants: Acom: Patent . Pcoms: Right KILN FIRER origin. Not visualized on the left. Vertebral arteries: Right is slightly dominant. Cervical spine: D egenerative changes in the cervical spine with multilevel disc degeneration (g reatest/moderate at C5-C6 and at C6-C7, minimal retrolisthesis of C3 on C4 and mild multilevel foraminal stenosis due to uncovertebral and facet arthrosis. Incidental findings: Small bilateral maxillary sinus retention cyst within mild bilateral middle ethmoid mucosal thickening. IMPRESSION: N long CTA 1. Atherosclerotic plaques as described. 2. Approximately 20% sten osis at the left carotid bulb. 3. No (0%) stenosis at the right carotid bulb by NASCET criteria. 4. Approximately 70% stenosis at the right vertebral art kishore origin. 5. Mild multifocal stenosis in the left vertebral artery. In tracranial CTA: 1. Atherosclerotic plaques as described. 2. Left KILN FIRER is oc cluded or near totally occluded in the P2 segment. 3. Moderate stenosis in th e proximal left vertebral artery. 4. Mild to moderate stenosis in the proxim al right vertebral artery. 5. Moderate atherosclerosis in the carotid siphons with mild stenosis on the right. Signed by: Dr. Arbaella Ferguson M.D. on 12:32 AM Dictated By: ARABELLA FERGUSON MD 0032 Transcribed By: DAVID on 03/14/19 003 2 COPY TO: JOVANNY DAVILA MD Hemoglobin A1c Percent 2019-03-13 20:03:00* Test Item Value Reference Range Interpretation Comments Hemoglobin A1c Percent (test code = Hemoglobin A1c Percent) 6.4 4.0-7.0 [facility] HospitalHemoglobin A1c Xczclji1192-22-00 20:03:00 * Test Item Value Reference Range Interpretation Comments Hemoglobin A1c Percent (test code = Hemoglobin A1c Percent) 6.4 4.0-7.0 [facility] HospitalTriglycerides Jcffh0748-13-49 19:40:00* Test Item Value Reference Range Interpretation Comments Triglycerides Level (test code = 2571-8) 53 0-149 [facility] HospitalCholesterol Crych9463-09-39 19:40:00* Test Item Value Reference Range Interpretation Comments Cholesterol Level (test code = 2093-3) 167 0-199 Less than 200 mg/dL Low Csnu068 - 239 mg/dL Borderline Ahoz201 m g/dl and greater High Risk [facility] HospitalLDL Kemodjhihqa2737-68-01 19:40:00* Test Item Value Reference Range Interpretation Comments LDL Cholesterol (test code = 2089-1) 96 60-130 [facility] HospitalHDL Yqxrvhnuqef5095-02-67 19:40:00* Test Item Value Reference Range Interpretation Comments HDL Cholesterol (test code = 2085-9) 60 40-60 [facility] HospitalCholesterol/HDL Dupnf5981-69-72 19:40:00 * Test Item Value Reference Range Interpretation Comments Cholesterol/HDL Ratio (test code = 9830-1) 2.8 3.9-4.7 L [facility] HospitalTriglycerides Zloya7061-86-51 19:40:00* Test Item Value Reference Range Interpretation Comments Triglycerides Level (test code = 2571-8) 53 0-149 [facility] HospitalCholesterol Fzcnj7087-93-77 19:40:00* Test Item Value Reference Range Interpretation Comments Cholesterol Level (test code = 2093-3) 167 0-199 Less than 200 mg/dL Low Gjiu355 - 239 mg/dL Borderline Nxnr549 m g/dl and greater High Risk [facility] HospitalLDL Ofbukrzeexa6882-69-47 19:40:00* Test Item Value Reference Range Interpretation Comments LDL Cholesterol (test code = 2089-1) 96 60-130 [facility] HospitalHDL Ojiaddoztba8364-67-66 19:40:00* Test Item Value Reference Range Interpretation Comments HDL Cholesterol (test code = 2085-9) 60 40-60 [facility] HospitalCholesterol/HDL Vxtgi3029-48-98 19:40:00 * Test Item Value Reference Range Interpretation Comments Cholesterol/HDL Ratio (test code = 9830-1) 2.8 3.9-4.7 L [facility] HospitalMRI BRAIN HH3612-44-73 17:56:[address] [address] Patient Name: ANGELA RINALDI MR #: [id number] : 1945 Age/Sex: 74/M Req #: [id number] Adm Physician: SHY TRUJILLO MD Ordered by: SHY TRUJILLO MD Report #: [id number] Location: MED/SURG Room/Bed: [facility] Procedure: [id number] M RI/MRI BRAIN WO Exam Date: Exam Time: REPORT STATUS: Signed Images made available for interpretation on 03/13/2019 at 5:55 PM. EXAMINATION: MRI of the brain w ithout contrast. HISTORY: Status post recent surgery, delayed response, not answering questions, evaluate for acute stroke. COMPARISON: None available TECHNIQUE: Sagittal T2; axial DWI, T2, FLAIR, T1-IR, T2 gradient echo; coronal FLAIR. IMAGE QUALITY: Adequate. FINDINGS: Parenchyma: 1. Focal area of matching T2 FLAIR and DWI hyperintensity in the right para me jacey fernanda, consistent with acute ischemic infarct. 2. Few scattered white mat ter T2 and FLAIR hyperintense foci, most likely nonspecific chronic microvascu lar ischemic changes. 3. Tiny chronic lacunar infarct in the right thalamocap sular region. 4. No mass, hemorrhage, acute or chronic infarcts. Sk ull: Unremarkable. Vessels: Expected flow voids present in the quin or arteries and dural sinuses. Extra-axial spaces: No abnormal signal i ntensity or mass effect. Brain volume: Within normal limits for age. Ventricles: No hydrocephalus or displacement. Foramen magnum: Unremark able. Sella: Unremarkable. Paranasal / mastoid sinuses: No sig nificant inflammatory disease. IMPRESSION: 1. 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 An emergent neurol ogy consult and CT angiogram of the head and neck with contrast is recommended . 2. Mild chronic microvascular ischemic changes. The findings were disc ussed with nurse practitioner taking care of the patient, Cecilia Millard on 03/13/2019 at 6 PM, who expresses understanding of the findings and recommendat ions and will contact the attending physician. Signed by: Dr. Scotty Cantu M.D. on 03/13/2019 6:05 PM Dictated By: SCOTTY CANTU MD Electronically Sig german By: SCOTTY CANTU MD on 03/13/191804 Transcribed By: DAVID on 03/13/19 180 5 COPY TO: SHY TRUJILLO MD Differential Total Cells Counted 2019-03-13 13:08:00* Test Item Value Reference Range Interpretation Comments Differential Total Cells Counted (test code = Differen tial Total Cells Counted) 100 [facility] HospitalNeutrophils % (Manual)2019-03-13 13:08:00 * Test Item Value Reference Range Interpretation Comments Neutrophils % (Manual) (test code = 63074-7) 90 40-74 H [facility] HospitalLymphocytes % (Manual)2019-03-13 13:08:00 * Test Item Value Reference Range Interpretation Comments Lymphocytes % (Manual) (test code = 737-7) 7 19-48 L [facility] HospitalMonocytes % (Manual)2019-03-13 13:08:00* Test Item Value Reference Range Interpretation Comments Monocytes % (Manual) (test code = 744-3) 3 3.4-9.0 L [facility] HospitalPlatelet Xhoyfcdf6144-17-57 13:08:00* Test Item Value Reference Range Interpretation Comments Platelet Estimate (test code = 20081-4) ADEQUATE [facility] HospitalRed Cell Morphology Qlozooe9855-07-62 13:08:00* Test Item Value Reference Range Interpretation Comments Red Cell Morphology Comment (test code = 6742-1) NORMAL [facility] HospitalDifferential Total Cells Counted 2019-03-13 13:08:00* Test Item Value Reference Range Interpretation Comments Differential Total Cells Counted (test code = Differen tial Total Cells Counted) 100 [facility] HospitalNeutrophils % (Manual)2019-03-13 13:08:00 * Test Item Value Reference Range Interpretation Comments Neutrophils % (Manual) (test code = 90992-0) 90 40-74 H [facility] HospitalLymphocytes % (Manual)2019-03-13 13:08:00 * Test Item Value Reference Range Interpretation Comments Lymphocytes % (Manual) (test code = 737-7) 7 19-48 L [facility] HospitalMonocytes % (Manual)2019-03-13 13:08:00* Test Item Value Reference Range Interpretation Comments Monocytes % (Manual) (test code = 744-3) 3 3.4-9.0 L [facility] HospitalPlatelet Ucjbsokd4009-29-12 13:08:00* Test Item Value Reference Range Interpretation Comments Platelet Estimate (test code = 23493-3) ADEQUATE [facility] HospitalRed Cell Morphology Mmyahgt0471-36-00 13:08:00* Test Item Value Reference Range Interpretation Comments Red Cell Morphology Comment (test code = 6742-1) NORMAL [facility] HospitalMagnesium Ymlyt0783-17-29 11:53:00* Test Item Value Reference Range Interpretation Comments Magnesium Level (test code = 80242-8) 1.9 1.3-2.1 [facility] HospitalMagnesium Aukwo1449-56-82 11:53:00* Test Item Value Reference Range Interpretation Comments Magnesium Level (test code = 11680-2) 1.9 1.3-2.1 [facility] HospitalCHEST 2 RSAKX2808-04-34 12:55:00 [facility] [address] [place] [address] Patient Name: ANGELA RINALDI MR #: [id number] : 1945 Age/Sex: 74/M Req #: [id number] Adm Physician: Ordered by: LEO RAM MD Report #: [id number] Location: OR Room/Bed: Procedure: DX/ CHEST 2 VIEWS Exam Date: 03/06/19 Exam Time: 1200 REPORT STATUS: Signed Chest, 2 vie ws, 03/06/2019. History: Preop. Comparison: 03/13/2018. Fin dings: The cardiomediastinal silhouette and pulmonary vasculature are within n ormal limits. The lungs are clear without evidence of consolidation or pleural effusion. A calcified granuloma is again seen at the left lung base. There are no acute osseous or soft tissue abnormalities. Impression: No acute c ardiopulmonary abnormality. Signed by: Melvin Valdovinos on 03/06/2019 12:58 PM Dictated By: MELVIN VALDOVINOS MD 1258 Transcribed By: DAVID on 03/06/19 1258 COPY TO: LEO KINGSLEY MD CT CHEST [id number] 11:49:[address] [address] Patient Name: ANGELA RINALDI MR #: [id number] : 1945 Age/Sex: 73/M Req #: [id number] Adm Physician: Ordered by: CLARISSE LUO MD Report #: [id number] Location: ER Room/Bed: Procedure: [id number] CT/CT CHEST W Exam Alin e: 03/13/18 Exam Time: 1124 REPORT STATUS: Sign ed EXAM: CT Chest WITH contrast 03/13/2018 10:48 AM INDICATION: Coughing up blood. COMPARISON: None TECHNIQUE: Chest was scanned utilizing a multidet zackery helical scanner from the lung apex through the level of the adrenal glan ds without administration of IV contrast. Coronal and sagittal reformations we re obtained. Routine protocol was performed. IV CONTRAST: 100 mL of Isovue 370 RADIATION DOSE: Total DLP: 502.97 mGy*cm Estimated effective dose: (DLP x 0.014 x size factor) mSv COMPLIC ATIONS: None FINDINGS: LINES/ TUBES: None. LUNGS AND AIRWAYS: Pun ctate calcified granuloma in the right middle lobe mucous plugging in the righ t lower lobe posteriorly, associated with fracture groundglass densities as se en on 2 series 3. Calcified granuloma in the posterior left lung base on image s 61 series 3. Mild bibasilar subsegmental atelectasis. PLEURA: The pleu ral spaces are clear. HEART AND MEDIASTINUM: The thyroid gland is normal. No mediastinal, hilar or axillary lymphadenopathy. The heart is normal in siz e.. There is no pericardial effusion. UPPER ABDOMEN: Limited non-con trast views of the upper abdomen show no abnormality within the visualized blaine er, spleen, pancreas, or kidneys. The adrenal glands are normal. BONES: T here are degenerative changes in the thoracic spine. SOFT TISSUES: Unremark able. IMPRESSION: 1. Mucous plugging and patchy groundglass density i n the posterior left lower lobe may represent aspiration, developing pneumonia , or focal pulmonary alveolar hemorrhage. 2. No pulmonary embolism. Signed by: Dr. Linda Keyes M.D. on 03/13/2018 11:58 AM Dictated By: BUCK KEYES MD, MD 1158 COPY TO: Kristen LUO MD Creatine Kinase [id number] 10:07:00* Test Item Value Reference Range Interpretation Comments Creatine Kinase MB (test code = 39133-9) 6.60 0-5.0 H [facility] HospitalTroponin J5451-14-34 10:07:00* Test Item Value Reference Range Interpretation Comments Troponin I (test code = YHA9192) 0.008 0-0.300 [facility] HospitalD-Dimer Quantitative (PE/DVT)2018-03-13 10:06:00* Test Item Value Reference Range Interpretation Comments D-Dimer Quantitative (PE/DVT) (test code = 80781-1) 0.30 0. 00-0.45 [facility] HospitalB-Type Natriuretic Pdthtqm8090-75-50 10:02:00* Test Item Value Reference Range Interpretation Comments B-Type Natriuretic Peptide (test code = 23021-6) 26.4 0-100 [facility] HospitalCreatine Nvvsyb8569-35-16 10:01:00* Test Item Value Reference Range Interpretation Comments Creatine Kinase (test code = 2157-6) 321 30-200 H [facility] HospitalProthrombin Pvst9725-78-21 09:54:00* Test Item Value Reference Range Interpretation Comments Prothrombin Time (test code = 5902-2) 13.2 11.9-14.5 [facility] HospitalProthromb Time International Ratio 2018-03-13 09:54:00* Test Item Value Reference Range Interpretation Comments Prothromb Time International Ratio (test code = 6301-6) 1.08 Oral Anticoagulant Therapy INR Values:1. Low Intensity Therapy 1.5 - 2.02 . Moderate Intensity Therapy 2.0 - 3.03. High Intensity Therapy(1) 2.5 - 3. 54. High Intensity Therapy(2) 3.0 - 4.05. Panic Value INR > 5.0 [facility] HospitalActivated Partial Thromboplast Time 2018-03-13 09:54:00* Test Item Value Reference Range Interpretation Comments Activated Partial Thromboplast Time (test code = 44476-1) 32.8 23.8-35.5 [facility]odium Retlp4546-99-97 09:51:00* Test Item Value Reference Range Interpretation Comments Sodium Level (test code = 2951-2) 137 136-145 [facility] HospitalPotassium Nmdcz0800-25-03 09:51:00* Test Item Value Reference Range Interpretation Comments Potassium Level (test code = 2823-3) 4.5 3.5-5.1 [facility] HospitalChloride Spusg2162-98-88 09:51:00* Test Item Value Reference Range Interpretation Comments Chloride Level (test code = 2075-0) 103 98-107 [facility] HospitalCarbon Dioxide Skglo3858-15-71 09:51:00* Test Item Value Reference Range Interpretation Comments Carbon Dioxide Level (test code = 2028-9) 27 22-29 [facility] HospitalAnion Txl7114-46-14 09:51:00* Test Item Value Reference Range Interpretation Comments Anion Gap (test code = 75358-5) 11.5 8-16 [facility] HospitalBlood Urea Wmegcnjt0419-31-55 09:51:00* Test Item Value Reference Range Interpretation Comments Blood Urea Nitrogen (test code = 3094-0) 28 7-26 H [facility] HospitalCreatinine2018-08-26 09:51:00* Test Item Value Reference Range Interpretation Comments Creatinine (test code = 2160-0) 1.12 0.72-1.25 [facility] HospitalBUN/Creatinine Cpdtj6651-57-24 09:51:00* Test Item Value Reference Range Interpretation Comments BUN/Creatinine Ratio (test code = 3097-3) 25 6-25 [facility] HospitalEstimat Glomerular Filtration Rate 2018-03-13 09:51:00* Test Item Value Reference Range Interpretation Comments Estimat Glomerular Filtration Rate (test code = 71778-2) 60- >60 Ranges were taken from the National Kidney Disease Education Program and the [facility] literature.Reference ranges:60 or greater: Amsjlt78-65 ( for 3 consecutive months): Chronic kidney disease 15 or less: Kidney failureHouston Methodist Baytown HospitalGlucose Peizr4247-20-76 09:51:00* Test Item Value Reference Range Interpretation Comments Glucose Level (test code = VRX7945) 131 74-118 H [facility] HospitalCal[facility] [id number] 09:51:00* Test Item Value Reference Range Interpretation Comments Calcium Level (test code = 86197-0) 9.1 8.4-10.2 [facility] Ytsohbjrq9590-39-58 09:51:00* Test Item Value Reference Range Interpretation Comments Total Bilirubin (test code = 1975-2) 0.7 0.2-1.2 [facility] HospitalAspartate Amino Transf (AST/SGOT) 2018-03-13 09:51:00* Test Item Value Reference Range Interpretation Comments Aspartate Amino Transf (AST/SGOT) (test code = Aspartate Amino Transf (AST/SGOT)) 24 5-34 [facility] HospitalAlanine Aminotransferase (ALT/SGPT) 2018-03-13 09:51:00* Test Item Value Reference Range Interpretation Comments Alanine Aminotransferase (ALT/SGPT) (test code = 1742-6) 23 0-55 [facility]Total Qwnsige4325-86-66 09:51:00* Test Item Value Reference Range Interpretation Comments Total Protein (test code = 2885-2) 6.4 6.5-8.1 L [facility] HospitalAlbumin2018-08-26 09:51:00* Test Item Value Reference Range Interpretation Comments Albumin (test code = 1751-7) 3.8 3.5-5.0 [facility] HospitalGlobulin2018-08-26 09:51:00* Test Item Value Reference Range Interpretation Comments Globulin (test code = 58052-6) 2.6 2.3-3.5 [facility] HospitalAlbumin/Globulin [id number] 09:51:00 * Test Item Value Reference Range Interpretation Comments Albumin/Globulin Ratio (test code = 1759-0) 1.5 0.8-2.0 [facility] HospitalAlkaline Armtyhwfwph4269-69-86 09:51:00* Test Item Value Reference Range Interpretation Comments Alkaline Phosphatase (test code = 6768-6) 44 40-150 [facility] HospitalCHEST 2 [id number] 09:39:00 [facility] [address] [address] Patient Name: ANGELA RINALDI MR #: [id number] : 1945 Age/Sex: 73/M Req #: [id number] Adm Physician: Ordered by: CLARISSE LUO MD Report #: [id number] Location: [facility]/Bed: Procedure: [id number] DX/CHEST 2 VIEWS Exam Date: 03/13/18 Exam Time: 923 REPORT STATUS: S igned EXAMINATION: CHEST 2 VIEWS INDICATION: coughed up blood COMPARISON: 06/25/2015. FINDINGS: TUBES and LINES: None. OZ NGS: Lungs are well inflated. Costophrenic gentleman the left lung base late rally. There is no evidence of pneumonia or pulmonary edema. PLEURA: No pleural effusion or pneumothorax. HEART AND MEDIASTINUM: The cardiomediast inal silhouette is unremarkable. BONES AND SOFT TISSUES: No acute osse ous lesion. Soft tissues are unremarkable. UPPER ABDOMEN: No free air un [place] the diaphragm. IMPRESSION: No acute thoracic abnormality. Signed by: Dr. Linda Keyes M.D. on 03/13/2018 9:43 AM Dictated By: BUCK KEYES MD, MD 2 COPY TO: CLARISSE LUO MD White Blood Wpulq5112-96-70 09:36:00* Test Item Value Reference Range Interpretation Comments White Blood Count (test code = 6690-2) 7.89 4.8-10.8 [facility] HospitalRed Blood Ccaqr1215-47-74 09:36:00* Test Item Value Reference Range Interpretation Comments Red Blood Count (test code = 789-8) 5.05 4.3-5.7 [facility] HospitalHemoglobin2018-08-26 09:36:00* Test Item Value Reference Range Interpretation Comments Hemoglobin (test code = 85319-0) 15.4 14.0-18.0 [facility] HospitalHematocrit2018-08-26 09:36:00* Test Item Value Reference Range Interpretation Comments Hematocrit (test code = 4544-3) 47.2 38.2-49.6 [facility] HospitalMean Corpuscular Smwlpo2149-03-34 09:36:00* Test Item Value Reference Range Interpretation Comments Mean Corpuscular Volume (test code = 787-2) 93.5 81-99 [facility] HospitalMean Corpuscular Vdibpwkbaz3117-47-97 09:36:00* Test Item Value Reference Range Interpretation Comments Mean Corpuscular Hemoglobin (test code = 785-6) 30.5 28-32 [facility] HospitalMean Corpuscular Hemoglobin Concent 2018-03-13 09:36:00* Test Item Value Reference Range Interpretation Comments Mean Corpuscular Hemoglobin Concent (test code = 786-4) 32.6 31-35 [facility] HospitalRed Cell Distribution Qhgvv8007-73-85 09:36:00* Test Item Value Reference Range Interpretation Comments Red Cell Distribution Width (test code = 72784-1) 13.2 11.7 -14.4 [facility] HospitalPlatelet Byyzt8902-19-94 09:36:00* Test Item Value Reference Range Interpretation Comments Platelet Count (test code = 777-3) 259 140-360 [facility] HospitalNeutrophils (%) (Auto)2018-03-13 09:36:00 * Test Item Value Reference Range Interpretation Comments Neutrophils (%) (Auto) (test code = 33971-0) 81.4 38.7-80.0 H [facility] HospitalLymphocytes (%) (Auto)2018-03-13 09:36:00 * Test Item Value Reference Range Interpretation Comments Lymphocytes (%) (Auto) (test code = 736-9) 8.2 18.0-39.1 L [facility] HospitalMonocytes (%) (Auto)2018-03-13 09:36:00* Test Item Value Reference Range Interpretation Comments Monocytes (%) (Auto) (test code = 5905-5) 7.0 4.4-11.3 [facility] HospitalEosinophils (%) (Auto)2018-03-13 09:36:00 * Test Item Value Reference Range Interpretation Comments Eosinophils (%) (Auto) (test code = 713-8) 1.8 0.0-6.0 [facility] HospitalBasophils (%) (Auto)2018-03-13 09:36:00* Test Item Value Reference Range Interpretation Comments Basophils (%) (Auto) (test code = 706-2) 0.5 0.0-1.0 [facility] HospitalIM GRANULOCYTES %2018-03-13 09:36:00* Test Item Value Reference Range Interpretation Comments IM GRANULOCYTES % (test code = IM GRANULOCYTES %) 1.1 0.0- 1.0 H [facility] HospitalNeutrophils # (Auto)2018-03-13 09:36:00* Test Item Value Reference Range Interpretation Comments Neutrophils # (Auto) (test code = 751-8) 6.4 2.1-6.9 [facility] HospitalLymphocytes # (Auto)2018-03-13 09:36:00* Test Item Value Reference Range Interpretation Comments Lymphocytes # (Auto) (test code = 90953-3) 0.7 1.0-3.2 L [facility] HospitalMonocytes # (Auto)2018-03-13 09:36:00* Test Item Value Reference Range Interpretation Comments Monocytes # (Auto) (test code = 742-7) 0.6 0.2-0.8 [facility] HospitalEosinophils # (Auto)2018-03-13 09:36:00* Test Item Value Reference Range Interpretation Comments Eosinophils # (Auto) (test code = 711-2) 0.1 0.0-0.4 [facility] HospitalBasophils # (Auto)2018-03-13 09:36:00* Test Item Value Reference Range Interpretation Comments Basophils # (Auto) (test code = 704-7) 0.0 0.0-0.1 [facility] HospitalAbsolute Immature Granulocyte (auto 2018-03-13 09:36:00* Test Item Value Reference Range Interpretation Comments Absolute Immature Granulocyte (auto (valeriano t code = Absolute Immature Granulocyte (auto) 0.09 0-0.1 [facility]
[2020-03-18] MEDS ORDERED: SEVOFLURANE INHAL SOLN 250 ML PEN BTL ONE (18:23)
[2020-03-18] MEDS ORDERED: ONDANSETRON HCL INJ 2MG/ML 2ML 2 MG/ML VIAL ONE (18:23)
[2020-03-18] MEDS ORDERED: ATROPINE SULFATE 1 MG/ML VIAL ONE (18:23)
[2020-03-18] MEDS ORDERED: LIDOCAINE HCL 2% LOCAL INJ 5 ML SDV VIAL INJ ONE (18:23)
[2020-03-18] MEDS ORDERED: GLYCOPYRROLATE INJ 0.2 MG/ML VIAL ONE (18:23)
[2020-03-18] MEDS ORDERED: DEXAMETHASONE SOD PHOS INJ 4 MG/ML VIAL ONE (18:23)
[2020-03-18] MEDS ORDERED: HYDRALAZINE HCL 20 MG/ML VIAL ONE (18:23)
[2020-03-18] MEDS ORDERED: ROCURONIUM BROMIDE 10 MG/ML 5ML VIAL IV ONE (18:23)
[2020-03-18] MEDS ORDERED: PROPOFOL IV EMULSION 10 MG/ML 20 ML VIAL ONE (18:23)
--- NOTE | 2020-03-18 18:30 | NUR ---
PT TO THE FLOOR FROM PACU. VITALS WNL. PT DENIES NEEDS AT THIS TIME.
[2020-03-18 18:36] VITALS: BP 158/64
[2020-03-18 20:00] VITALS: BP 169/90
[2020-03-18] MEDS: PIPER-TAZ 3.375 GM 50 ML IV SCH (20:17)
[2020-03-18] MEDS: D5.45%NS/KCL 20MEQ 1,000 ML IV SCH (20:17)
[2020-03-18 20:21] VITALS: BP 169/90
[2020-03-18] MEDS: CLINDAMYCIN 300MG 50 ML IV SCH (21:02)
[2020-03-18 23:00] VITALS: BP 169/90
--- NOTE | 2020-03-18 23:10 | Operative Report ---
DATE OF PROCEDURE: 03/18/2020 SURGEON: Bj Concepcion MD PREOPERATIVE DIAGNOSES: 1. Organic impotence. 2. Urinary tract infection. POSTOPERATIVE DIAGNOSES: 1. Organic impotence. 2. Urinary tract infection. OPEATIONS PERFORMED: 1. Cystourethroscopy (separate procedure performed for the urinary tract infections). 2. Implantation of multi-component inflatable penile prosthesis (separate surgery performed for the organic impotence). STRAW BALER: Tyrone Concepcion MD. ANESTHESIA: General. COMPLICATIONS: None. CLINICAL SUMMARY: Beto Ty is a 75-year-old man with longstanding organic impotency. He has failed all oral medication. He has failed intracorporeal injection. He has failed all other modalities. He presented with this problem some time ago. We had to manage the patient's lower tract obstructive issues. This resulted in transurethral resection of prostate and also resulted in management of urethral stricture disease. The patient has been dilating with 24-[place] Konger coude tip catheter approximately once every 4 days as his strictures have progressively healed and improved. The patient, early last week was found to have urinary tract infection. He was prescribed antibiotics, which improved culture specific. The patient has no urinary tract infection symptomatology. He has no hematuria and no dysuria. His overactive bladder symptomatology is back to his baseline and has managed with anticholinergic medications. The patient is brought to the operating room for the above procedures. He is aware of the risks of bleeding, infection, injury to adjacent structures, need to additional procedures, and elected to proceed. OPERATIVE PROCEDURE IN DETAIL: Informed consent was verified. Beto Ty was properly identified, taken to the operating room, and placed on the operating table in supine position. Anesthesia was uneventfully begun. The patient's abdomen and genitalia were shaved, prepared, and draped in usual sterile fashion. The prep time of preparation was 10 minutes block. The flexible cystoscope was inserted under direct vision. The fossa navicularis stricture was not recurrent. There was some narrowing at the bulbar region, but we easily passed the scope through this and I would estimate that it calibrated at least 20-[place]er in size. The sphincteric region was normal. The prostate bed was wide open, status post transurethral prostatectomy. It was also completely re-epithelialized. The bladder exhibited grade 2 trabeculations, but no tumors, no stones, no diverticula, and no suspicious lesions. The cystoscope was withdrawn. Rodriguez catheter was placed with completely clear urine and fluid efflux. A transverse scrotal incision was made. We isolated each corpus cavernosum taking care to stay well away from the urethra and avoid any injury. Stay sutures were placed and incorporated size was measured. We then replaced 2-0 Vicryl sutures. This was performed bilaterally. The length of each corpus cavernosum was 20 cm. The dilation was carried out to 12 mm. We felt that the standard prosthesis was too large for the patient's penile shaft. Therefore, we proceeded with selecting the AMS 700 CXR, 16 cm x 9.5 mm implant. We utilized 4 cm of rear-tip extenders on each side. We placed the prosthesis in standard fashion and tied down the pre-placed Vicryl sutures. We then created a subdartos pouch for the pump and brought it to the dependable portion of the scrotum. 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 We then only dissected medial to this left spermatic cord and with a finger, created a pocket. We then placed the reservoir into the pocket, filled with 65 mL of sterile saline. We then completed the connection to the reservoir tubing and the pump tubing utilizing Quick connect system. The prosthesis was then partially inflated. We utilized chromic suture to buried the tubing and placed tissue between each of these tubing. We then approximated the scrotal incision in layers utilizing chromic suture. We copiously irrigated with antibiotic solution at each layer of the closure and prior to placement of corpus cavernosum. Sterile dressings were applied and the patient was uneventfully reversed from anesthesia and taken to recovery room in stable condition. There were no complications to the procedure. The patient tolerated the procedure well. Sponge, needle, and instrument counts were correct x2 at the end of the case. Estimated blood loss was approximately 100 mL. PLAN: We will plan on admitting the patient for course of intravenous antibiotics not just to minimize the risk of normal infection to the prosthesis, but also in light of the recent urinary tract infection, which has been treated, but in light of a new prosthesis several days of intravenous antibiotics. Bj Hampel, MD [place]/MODL /[id number] cc: Negrito Pickens MD
[2020-03-19] VITALS (7 sets, daily range): BP systolic 145–168; BP diastolic 55–71
[2020-03-19] MEDS: PIPER-TAZ 3.375 GM 50 ML IV SCH ×3 (05:10→20:13)
[2020-03-19 05:42] LABS: BASOPHILS % 0.1 % (0.0-1.0); HEMATOCRIT 41.3 % (38.2-49.6); HEMOGLOBIN 13.2 g/dL (14.0-18.0); LYMPHOCYTES # (AUTO) 0.4 (1.0-3.2); LYMPHOCYTES % 2.6 % (18.0-39.1); MEAN CORPUSCULAR HEMOGLOBIN 28.8 pg (28-32); MEAN CORPUSCULAR VOLUME 90.2 fL (81-99); MONOCYTES # (AUTO) 1.1 (0.2-0.8); MONOCYTES % 6.7 % (4.4-11.3); NEUTROPHILS # (AUTO) 14.2 (2.1-6.9); PLATELET COUNT 229 x10e3/uL (140-360); RED BLOOD COUNT 4.58 x10e6/uL (4.3-5.7); RED CELL DISTRIBUTION WIDTH 13.2 % (11.7-14.4)
[2020-03-19] MEDS: CLINDAMYCIN 300MG 50 ML IV SCH ×3 (05:43→21:56)
[2020-03-19] MEDS: D5.45%NS/KCL 20MEQ 1,000 ML IV SCH (06:35)
[2020-03-19 06:39] LABS: ANION GAP 13.7 mmol/L (8-16); BLOOD UREA NITROGEN 15 mg/dL (7-26); BUN/CREATININE RATIO 13 (6-25); CALCIUM 8.1 mg/dL (8.4-10.2); CARBON DIOXIDE 23 mmol/L (22-29); CHLORIDE 104 mmol/L (98-107); CREATININE, SERUM 1.15 mg/dL (0.72-1.25); EST GLOMERULAR FILTRATION RATE > 60 ML/MIN (60-); GLUCOSE 167 mg/dL (74-118); POTASSIUM 4.7 mmol/L (3.5-5.1); SODIUM 136 mmol/L (136-145)
[2020-03-19] MEDS ORDERED: ACETAMINOPHEN/CODEINE 300MG - 30MG TAB PO PRN (07:00)
--- NOTE | 2020-03-19 07:36 | History and Physical ---
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 HISTORY OF PRESENT ILLNESS: The patient is a 75-year-old gentleman, who is postoperative for penile implant, who complains of pain is mild at the current time and denies any chest pain, fever, chills, nausea, vomiting, headache, shortness of breath on review of systems. PAST MEDICAL HISTORY: Significant for diabetes, hypertension, hyperlipidemia, reflux disease, BPH, impotence, and history of cerebrovascular accident. MEDICATIONS: See MAR. ALLERGIES: CORTISONE. SOCIAL HISTORY: Nonsmoker and nondrinker. Lives at home with his . FAMILY HISTORY: Noncontributory. PHYSICAL EXAMINATION: VITAL SIGNS: Temperature 98.8, pulse 65, blood pressure 157/64, sats 95% on room air. GENERAL: He is in no apparent distress, lying in bed. NECK: Supple. CARDIOVASCULAR: Regular rate and rhythm. LUNGS: Clear to auscultation bilaterally. ABDOMEN: Good bowel sounds. Soft, nontender. EXTREMITIES: No clubbing or cyanosis. He has a Rodriguez in place with clear urine. No blood. NEUROLOGIC: Nonfocal. Moves all extremities x4. ASSESSMENT AND PLAN: 1. Status post penile implant for impotence of organic reasons of diabetes. Continue with current postoperative care per Urology. 2. Urinary tract infection. Continue with his antibiotics. 3. Hypertension. Continue with his medications. 4. Diabetes. Continue to monitor. 5. Anemia. Check a CBC. 6. Hypertension. Continue to monitor. 7. Urinary incontinence and benign prostatic hypertrophy. Continue with his medications. Please see hospital chart for full details. MD MARIELENA Ortiz/MARSHA /[id number]
--- NOTE | 2020-03-19 07:45 | NUR ---
Removed alvarenga catheter per ordered, catheter tip intact, 350 ml yellow-colored urine noted in drainage bag. Due to void 1345.
[2020-03-19] MEDS: DOCUSATE SODIUM 100 MG CAP PO SCH ×2 (08:25→16:17)
[2020-03-19] MEDS: FAMOTIDINE 20 MG TAB PO SCH ×2 (08:25→16:17)
[2020-03-19] MEDS: OXYBUTYNIN CHLORIDE 5 MG TAB PO SCH ×2 (08:26→16:17)
[2020-03-19] MEDS: MONTELUKAST SODIUM 10 MG TAB PO SCH (08:26)
[2020-03-19] MEDS ORDERED: ASPIRIN 81 MG CHEW TAB PO SCH (09:00)
[2020-03-19] MEDS: LISINOPRIL 20 MG TAB PO SCH (09:27)
--- NOTE | 2020-03-19 10:15 | NUR ---
Patient urinated small amount in the toilet at this time. Denies discomfort and pain. Call light in reach.
--- NOTE | 2020-03-19 11:55 | NUR ---
Patient urinated moderate amount of urine at this time.
[2020-03-20] VITALS: BP 170/62
[2020-03-20 04:00] VITALS: BP 168/73
[2020-03-20] MEDS: PIPER-TAZ 3.375 GM 50 ML IV SCH (05:09)
[2020-03-20] MEDS: CLINDAMYCIN 300MG 50 ML IV SCH (05:55)
--- NOTE | 2020-03-20 06:51 | NUR ---
REPORT GIVEN TO DAYSHIFT NURSE. ALERT AND RESTING IN BED. NO SIGNS IV INFILTRATION. BED LOCKED AND IN LOW POSITION. CALL LIGHT WITHIN REACH.
[2020-03-20 08:27] VITALS: BP 189/66
[2020-03-20] MEDS: DOCUSATE SODIUM 100 MG CAP PO SCH (09:04)
[2020-03-20] MEDS: OXYBUTYNIN CHLORIDE 5 MG TAB PO SCH (09:04)
[2020-03-20] MEDS: FAMOTIDINE 20 MG TAB PO SCH (09:04)
[2020-03-20] MEDS: LISINOPRIL 20 MG TAB PO SCH (09:05)
[2020-03-20] MEDS: MONTELUKAST SODIUM 10 MG TAB PO SCH (09:05)
[2020-03-20 09:17] VITALS: BP 189/66
[2020-03-20] MEDS ORDERED: TYLENOL # 31 EA PO (10:40)
[2020-03-20] MEDS ORDERED: LEVAQUIN500 MG PO (10:40)
--- NOTE | 2020-03-20 11:38 | NUR ---
Discharge education provided emphasizing the need to follow-up with Dr. Concepcion. Verbalized understanding. Home prescription medication given. PIV to right AC removed, catheter intact, no bleeding noted. Discharge packet given. Accompanied patient to private vehicle with all personal belongings taken.
--- NOTE | 2020-03-21 13:39 | Discharge Summary ---
DISCHARGE DIAGNOSES: 1. Status post penile implant. 2. Urinary tract infection. 3. Diabetes. 4. History of cerebrovascular accident. 5. Hyperlipidemia. HISTORY OF PRESENT ILLNESS AND HOSPITAL COURSE: See hospital chart for full details. The patient is a gentleman who was electively admitted for implant of the penis for organic erectile dysfunction secondary to his diabetes and history of CVA, who did well postoperatively, did have some evidence of urinary tract infections. He was placed on IV antibiotics and was followed by Dr. Concepcion, a surgeon. The patient did very well postoperatively, where he had significant improvement in his pain. At the time of discharge, he was felt just more of a soreness. His vital signs were stable. He is afebrile. His labs were unremarkable at the time of discharge and he is cleared by Dr. Concepcion. He was able to be discharged home with followup in 1 [address] Concepcion as well as with myself. Please see hospital chart for details. MD MARIELENA Ortiz/MARSHA /[id number]
== END 2020-03-20 11:38 | disposition home or self-care (01) | DRG 709 ==
LOC: OR 11:34 → MED/SURG 18:13
PROVIDERS: ADMIT Internal Medicine; ATTEND Internal Medicine
PROC: 0VUS0JZ Supplement Penis with Synthetic Substitute, Open Approach (ICD-10-PCS; principal; 2020-03-18 14:30)
DX: N52.9 Male erectile dysfunction, unspecified (principal); N39.0 Urinary tract infection, site not specified; Z11.59 Encounter for screening for other viral diseases; D64.9 Anemia, unspecified; E11.9 Type 2 diabetes mellitus without complications; Z86.73 Personal history of transient ischemic attack (TIA), and cerebral infarction without residual deficits; E78.5 Hyperlipidemia, unspecified; K21.9 Gastro-esophageal reflux disease without esophagitis; I10 Essential (primary) hypertension
CPT/HCPCS: 36415; 80048; 85025; 93005; C1813; J0360; J0461; J1100; J1580; J2001; J2250; J2270; J2405; J2543; J3010; J3370; U0002

== ENCOUNTER → 2023-09-09 | Day surgery (SDC) | payer MEDICARE, OTHER ==
[2023-09-08 13:59] LABS: BASOPHILS % 0.4 % (0.0-1.0); EOSINOPHILS # (AUTO) 0.3 (0.0-0.4); EOSINOPHILS % 2.6 % (0.0-6.0); HEMATOCRIT 40.1 % (38.2-49.6); HEMOGLOBIN 12.6 g/dL (14.0-18.0); LYMPHOCYTES # (AUTO) 0.7 (1.0-3.2); LYMPHOCYTES % 7.7 % (18.0-39.1); MEAN CORPUSCULAR HEMOGLOBIN 29.8 pg (28-32); MEAN CORPUSCULAR HGB CONC 31.4 g/dL (31-35); MEAN CORPUSCULAR VOLUME 94.8 fL (81-99); MONOCYTES # (AUTO) 0.6 (0.2-0.8); MONOCYTES % 6.7 % (4.4-11.3); NEUTROPHILS # (AUTO) 7.7 (2.1-6.9); NEUTROPHILS % 81.2 % (38.7-80.0); PLATELET COUNT 218 x10e3/uL (140-360); RED BLOOD COUNT 4.23 x10e6/uL (4.3-5.7); RED CELL DISTRIBUTION WIDTH 12.8 % (11.7-14.4); WHITE BLOOD COUNT 9.53 x10e3/uL (4.8-10.8)
[2023-09-08 14:16] LABS: INR 1.22; PROTHROMBIN TIME 15.7 seconds (11.9-14.5)
[2023-09-08 14:27] LABS: ALBUMIN 3.4 g/dL (3.5-5.0); ALBUMIN/GLOBULIN RATIO 1.2 (0.8-2.0); ANION GAP 13.6 mmol/L (8-16); BILIRUBIN,TOTAL 0.8 mg/dL (0.2-1.2); CALCIUM 8.6 mg/dL (8.4-10.2); CHOL/HDL RATIO 3.2 (3.9-4.7); CREATININE, SERUM 1.38 mg/dL (0.72-1.25); POTASSIUM 4.6 mmol/L (3.5-5.1); TOTAL PROTEIN 6.3 g/dL (6.5-8.1)
[~2023-09-09] VITALS: Ht 365.8 cm; Wt 74.8 kg
[2023-09-09] VITALS (8 sets, daily range): BP systolic 107–138; BP diastolic 48–56; PULSE 48–60; RESP 12–14; TEMP 98.8; O2SAT 98–100
[~2023-09-09] MED LIST changes: +ANTIBIOTIC PO; +ASPIRIN 325 MG TAB ONE; +ATORVASTATIN CA20 MG PO; +CLOPIDOGREL BISULFATE 75 MG TAB ONE; +FENTANYL CITRATE/PF 100MCG/2 ML INJ ONE; +HEPARIN SOD (PORCINE) 1000 UNIT/ML 30ML ONE; +HEPARIN SOD/SOD CHLORIDE 2,000 ML ONE; +IOPAMIDOL 370 MG/ML 100 ML INFUS..BTL INJ ONE; +LEVAQUIN500 MG PO; +LIDOCAINE HCL 2% LOCAL 20 ML VIAL ONE; +MIDAZOLAM HCL 2 MG/2 ML VIAL ONE; +NITROGLYCERIN/D5W 200 MCG/ML 250 ML ONE; +OLMESARTAN-HCT1 EAC1 PO; +PROTONIX20 MG PO; +SODIUM CHLORIDE 0.9% 1000ML 1,000 ML ONE; +TYLENOL # 31 EA PO; +VERAPAMIL HCL 2.5 MG/ML 2 ML VIAL ONE
== END | disposition home or self-care (01) ==
LOC: CATH LAB 06:26
PROVIDERS: ATTEND Internal Medicine Cardiovascular Disease
DX: I25.118 Atherosclerotic heart disease of native coronary artery with other forms of angina pectoris (principal); I10 Essential (primary) hypertension; R00.1 Bradycardia, unspecified; E78.5 Hyperlipidemia, unspecified; I65.23 Occlusion and stenosis of bilateral carotid arteries; Z82.49 Family history of ischemic heart disease and other diseases of the circulatory system; E11.9 Type 2 diabetes mellitus without complications; M19.90 Unspecified osteoarthritis, unspecified site; Z79.02 Long term (current) use of antithrombotics/antiplatelets; Z79.899 Other long term (current) drug therapy; Z86.73 Personal history of transient ischemic attack (TIA), and cerebral infarction without residual deficits
CPT/HCPCS: 93458; C9600; 36415; 76937; 80053; 80061; 82948; 85025; 85610; 92920; 92928; 99152; 99153; C1725; C1874; C1887; J1644; J2001; J2250; J7030; Q9967